=== PATIENT | female | born 1955 | race Caucasian/White ===

== ENCOUNTER 2016-03-25 07:22 | Day surgery (SDC) | payer BC, OTHER ==
[~2016-03-25] VITALS: Ht 170.2 cm; Wt 79.8 kg
[~2016-03-25 07:22] MED LIST: ADVAIR HFA120 INHALA IH; BYETTA PEN250 MCG/M1 SC; BYSTOLIC10 MG PO; BYSTOLIC5 MG PO; CALCIUM ACETAT667 MG PO; CARDURA2 M1 PO; CITALOPRAM HBR20 MG PO; CLONIDINE HCL0.1 MG PO; CLONIDINE HCL0.2 MG PO; CYCLOBENZAPRINE10 MG PO; DESYREL100 MG PO; DOXAZOSIN MESYLA2 MG PO; EDECRIN PO; EDECRIN25 MG PO; ENDOCET 7.5-321 EACH PO; FENOFIBRATE160 M1; FENOFIBRATE160 M1 PO; HUMALOG100 UNIT/2 SC; INDOCIN50 MG PO; IRON325 MG PO; JANUMET 50/11 TABLET; JANUVIA25 MG PO; LEVAQUIN250 MG PO; LEVOFLOXACIN500 MG PO; LISINOPRIL40 MG PO; METOLAZONE2.5 MG PO; NABI650T PO; NICOTINE PATCH1 EAC2 TD; NOVOLOG 10100 UNITS/; PREDNISONE10 M1 PO; PROAIR HFA8.5 GM IH; PROCRIT2000 UNIT1 IV; ROXICET 5-3251 EACH PO; SAVELLA50 MG PO; SPIRIVA RESPIMAT4 GM IH; SPIRONOLACTONE25 MG PO; VERAPAMIL HCL240 MG PO; VERELAN 180 MG180 MG; VICTOZA 2-0.6 MG/0.1 SC; VITAMIN D32000 UNI1 PO; ZOLPIDEM TARTRA10 MG PO
[2016-03-25 08:19] LABS: POINT-OF-CARE METER ID UU13113696
== END 2016-03-25 09:38 | disposition home or self-care (01) ==
LOC: CATH 07:22
PROVIDERS: Surgery
DX: T82.858A Stenosis of other vascular prosthetic devices, implants and grafts, initial encounter (principal); Y83.2 Surgical operation with anastomosis, bypass or graft as the cause of abnormal reaction of the patient, or of later complication, without mention of misadventure at the time of the procedure; I12.0 Hypertensive chronic kidney disease with stage 5 chronic kidney disease or end stage renal disease; E11.22 Type 2 diabetes mellitus with diabetic chronic kidney disease; N18.6 End stage renal disease; Z99.2 Dependence on renal dialysis; I65.23 Occlusion and stenosis of bilateral carotid arteries; E78.5 Hyperlipidemia, unspecified; J45.909 Unspecified asthma, uncomplicated; M19.90 Unspecified osteoarthritis, unspecified site; Z79.4 Long term (current) use of insulin; F17.200 Nicotine dependence, unspecified, uncomplicated; E66.9 Obesity, unspecified; Z68.34 Body mass index [BMI] 34.0-34.9, adult; Z88.8 Allergy status to other drugs, medicaments and biological substances; Z91.040 Latex allergy status
CPT/HCPCS: 82948; C1725; C1769; C1894; J1644; J2250; J3010

== ENCOUNTER 2016-04-18 13:22 | Inpatient (IN) | payer BC, OTHER ==
[~2016-04-18] VITALS: Ht 167.6 cm; Wt 75.9 kg
[2016-04-18 15:25] LABS: HEMATOCRIT 28.6 % (36.0-46.0); MCHC 33.6 G/DL (30.0-36.0); MCV 89.4 FL (83-99); MEAN PLAT.VOLUME 8.5 uM^3 (9.5-12.4); PLATELET COUNT 321 K/uL (156-360); RBC DIS.WIDTH-CV 15.7 % (11.8-14.6); RBC DIS.WIDTH-SD 49.5 % (39-53); WHITE BLOOD COUNT 20.3 K/uL (4.1-10.2)
[2016-04-18 15:36] LABS: CHLORIDE 104 mEq/L (99-109); POTASSIUM 3.9 mEq/L (3.7-5.4); SODIUM 134 mEq/L (136-147)
[2016-04-18 15:38] LABS: GLUCOSE 83 mg/dL (70-99)
[2016-04-18 15:39] LABS: ANION GAP 18 MEQ/L (2-14)
[2016-04-18 15:41] LABS: GFR ESTIMATE (CALCULATED) 5 mL/min/
[2016-04-18 15:42] LABS: CREATINE KINASE 62 IU/L (1-294); TOTAL CK 62 IU/L (1-294)
[2016-04-18] MEDS ORDERED: OXYCODONE-APAP1 EAC6 PO (15:45)
[2016-04-18] MEDS ORDERED: EPOGEN,PRO20000 UNIT SC (15:45)
[2016-04-18 15:46] LABS: TROP-I INTERPRETATION NEGATIVE; TROPONIN-I 0.08 ng/mL (0.0-0.30)
[2016-04-18 15:46] LABS: UREA NITROGEN (BUN) 128 mg/dL (9-23)
[2016-04-18 15:48] LABS: CK-MB 5.9 ng/mL (0.0-4.9)
[2016-04-18 16:10] LABS: ADD MIUA? YES; BILIRUBIN NEGATIVE; BLOOD NEGATIVE; COLOR YELLOW ((YELLOW)); GLUCOSE (STRIP) NEGATIVE; KETONES NEGATIVE; LEUKOCYTES TRACE; NITRITE NEGATIVE; PROTEIN (STRIP) 100; SPECIFIC GRAVITY 1.017 (1.000-1.030)
[2016-04-18 16:38] LABS: CARBON DIOXIDE (BICARBONATE) 12.1 MEQ/L (20-31)
[2016-04-18 16:46] LABS: AMORPHOUS URATES CRYSTALS 3+; BACTERIA RARE; CASTS NONE SEEN /LPF; CRYSTALS PRESENT; EPITHELIAL CELLS RARE; MUCUS NONE SEEN; RED BLOOD CELLS NONE SEEN /HPF (0-5); UCUL ADDED? NO; WHITE BLOOD CELLS 0-5 /HPF (0-5)
[2016-04-18] MEDS ORDERED: FENOFIBRATE160 M1 PO (18:26)
[2016-04-18 21:53] VITALS: BP 157/67
[2016-04-19] VITALS: BP 149/71
[2016-04-19 00:26] LABS: ALKALINE PHOSPHATASE 130 IU/L (3-129); DIRECT BILIRUBIN 0.9 mg/dL (0.0-0.3); TOTAL BILIRUBIN 1.3 MG/DL (0.0-1.0)
[2016-04-19 06:41] LABS: HEMATOCRIT 24.9 % (36.0-46.0); MCH 29.9 PG (29.0-34.0); MCHC 33.7 G/DL (30.0-36.0); MCV 88.6 FL (83-99); MEAN PLAT.VOLUME 9.1 uM^3 (9.5-12.4); PLATELET COUNT 251 K/uL (156-360); RBC DIS.WIDTH-CV 15.9 % (11.8-14.6); RED BLOOD COUNT 2.81 M/uL (3.80-5.20); WHITE BLOOD COUNT 16.5 K/uL (4.1-10.2)
[2016-04-19 06:50] LABS: EOSINOPHIL (%) 0 % (0-5); IMMATURE GRANULOCYTE (%) 0.6 % (0.0-0.7); IMMATURE GRANULOCYTE COUNT 0.1 K/uL; LYMPHOCYTE COUNT 0.5 K/uL (1.0-2.8); MONOCYTE (%) 7.5 % (3-12); MONOCYTE COUNT 1.2 K/uL (0-0.8); NEUTROPHIL (%) 88.7 % (45-76); NEUTROPHIL COUNT 14.7 K/uL (1.8-6.4)
[2016-04-19 07:07] LABS: ANION GAP 17 MEQ/L (2-14); CHLORIDE 102 MEQ/L (99-109); GLUCOSE 75 mg/dL (70-99); POTASSIUM 3.3 MEQ/L (3.7-5.4); SAMPLE HEMOLYSIS CHECK 0; SAMPLE ICTERIC CHECK 0; SAMPLE LIPEMIA CHECK 0; SODIUM 137 MEQ/L (136-147); UREA NITROGEN (BUN) 72 mg/dL (9-23)
[2016-04-19 07:16] LABS: GFR ESTIMATE (CALCULATED) 8 mL/min/
[2016-04-19 07:55] VITALS: BP 148/64
[2016-04-19 16:02] VITALS: BP 154/68
[2016-04-19 23:38] VITALS: BP 129/63
[2016-04-20 05:37] LABS: MCHC 33.2 G/DL (30.0-36.0); MCV 90.3 FL (83-99); MEAN PLAT.VOLUME 9.5 uM^3 (9.5-12.4); PLATELET COUNT 242 K/uL (156-360); RBC DIS.WIDTH-SD 52.9 % (39-53); RED BLOOD COUNT 2.77 M/uL (3.80-5.20); WHITE BLOOD COUNT 12.7 K/uL (4.1-10.2)
[2016-04-20 05:51] LABS: EOSINOPHIL (%) 0.2 % (0-5); IMMATURE GRANULOCYTE (%) 0.8 % (0.0-0.7); IMMATURE GRANULOCYTE COUNT 0.1 K/uL; LYMPHOCYTE COUNT 0.9 K/uL (1.0-2.8); MONOCYTE (%) 9.6 % (3-12); MONOCYTE COUNT 1.2 K/uL (0-0.8); NEUTROPHIL (%) 82.5 % (45-76); NEUTROPHIL COUNT 10.4 K/uL (1.8-6.4)
[2016-04-20 06:04] LABS: ANION GAP 12 MEQ/L (2-14); CHLORIDE 102 MEQ/L (99-109); POTASSIUM 3.6 MEQ/L (3.7-5.4); SAMPLE HEMOLYSIS CHECK 0; SAMPLE ICTERIC CHECK 0; SAMPLE LIPEMIA CHECK 0; SODIUM 139 MEQ/L (136-147); UREA NITROGEN (BUN) 49 mg/dL (9-23)
[2016-04-20 06:05] LABS: GFR ESTIMATE (CALCULATED) 11 mL/min/; GLUCOSE 127 mg/dL (70-99)
[2016-04-20 07:55] VITALS: BP 143/70
[2016-04-20 10:11] LABS: AHBS INDEX 0; HBSG INDEX 0.17; HEPATITIS B SURFACE ANTIBODY Nonreactive
[2016-04-20 10:12] LABS: ANTI-HEPATITIS B CORE (IGM) Nonreactive; HBC IgM INDEX 0.08
[2016-04-20 15:38] VITALS: BP 140/66
[2016-04-20 20:31] VITALS: BP 174/73
[2016-04-21] VITALS (7 sets, daily range): BP systolic 136–188; BP diastolic 54–82
[2016-04-21 00:09] LABS: C DIFF TOXIN POSITIVE (NEGATIVE)
[2016-04-21 00:11] LABS: PROBE CHECK PASS
[2016-04-21 07:05] LABS: HEMATOCRIT 27.8 % (36.0-46.0); MCHC 32.7 G/DL (30.0-36.0); MCV 91.7 FL (83-99); MEAN PLAT.VOLUME 9.5 uM^3 (9.5-12.4); PLATELET COUNT 248 K/uL (156-360); RBC DIS.WIDTH-CV 16.4 % (11.8-14.6); RBC DIS.WIDTH-SD 54.2 % (39-53); RED BLOOD COUNT 3.03 M/uL (3.80-5.20); WHITE BLOOD COUNT 14.2 K/uL (4.1-10.2)
[2016-04-21 08:35] LABS: ANION GAP 11 MEQ/L (2-14); CHLORIDE 102 MEQ/L (99-109); POTASSIUM 3.7 MEQ/L (3.7-5.4); SAMPLE HEMOLYSIS CHECK 0; SAMPLE ICTERIC CHECK 0; SAMPLE LIPEMIA CHECK 0; SODIUM 136 MEQ/L (136-147)
[2016-04-21 08:40] LABS: GFR ESTIMATE (CALCULATED) 9 mL/min/; GLUCOSE 130 mg/dL (70-99); UREA NITROGEN (BUN) 61 mg/dL (9-23)
[2016-04-22 07:31] LABS: ANION GAP 12 MEQ/L (2-14); CHLORIDE 101 MEQ/L (99-109); GFR ESTIMATE (CALCULATED) 14 mL/min/; GLUCOSE 131 mg/dL (70-99); SAMPLE HEMOLYSIS CHECK 0; SAMPLE ICTERIC CHECK 0; SAMPLE LIPEMIA CHECK 0; SODIUM 137 MEQ/L (136-147); UREA NITROGEN (BUN) 34 mg/dL (9-23)
[2016-04-22 07:50] VITALS: BP 150/68
[2016-04-22] MEDS ORDERED: METOLAZONE5 MG PO (11:52)
[2016-04-22 15:21] VITALS: BP 152/67
[2016-04-22 21:27] VITALS: BP 168/74
[2016-04-22 23:55] VITALS: BP 143/54
[2016-04-23 06:32] LABS: HEMATOCRIT 27.2 % (36.0-46.0); MCH 29.7 PG (29.0-34.0); MCV 92.8 FL (83-99); MEAN PLAT.VOLUME 9.9 uM^3 (9.5-12.4); PLATELET COUNT 226 K/uL (156-360); RBC DIS.WIDTH-CV 16.7 % (11.8-14.6); RBC DIS.WIDTH-SD 55.5 % (39-53); RED BLOOD COUNT 2.93 M/uL (3.80-5.20); WHITE BLOOD COUNT 16.4 K/uL (4.1-10.2)
[2016-04-23 06:54] LABS: EOSINOPHIL (%) 0.4 % (0-5); EOSINOPHIL COUNT 0.1 K/uL (0-0.3); IMMATURE GRANULOCYTE (%) 0.6 % (0.0-0.7); IMMATURE GRANULOCYTE COUNT 0.1 K/uL; LYMPHOCYTE COUNT 0.9 K/uL (1.0-2.8); MONOCYTE (%) 9.1 % (3-12); MONOCYTE COUNT 1.5 K/uL (0-0.8); NEUTROPHIL (%) 84.6 % (45-76); NEUTROPHIL COUNT 13.9 K/uL (1.8-6.4)
[2016-04-23 07:03] LABS: ANION GAP 11 MEQ/L (2-14); CHLORIDE 100 MEQ/L (99-109); GFR ESTIMATE (CALCULATED) 9 mL/min/; GLUCOSE 124 mg/dL (70-99); POTASSIUM 3.7 MEQ/L (3.7-5.4); SAMPLE HEMOLYSIS CHECK 0; SAMPLE ICTERIC CHECK 0; SAMPLE LIPEMIA CHECK 0; SODIUM 133 MEQ/L (136-147); UREA NITROGEN (BUN) 50 mg/dL (9-23)
[2016-04-23 07:46] VITALS: BP 125/62
[2016-04-23 10:29] LABS: HEMATOLOGY COMMENT 1 SMEAR COMPATIBLE; USER ID CL
[2016-04-23] MEDS ORDERED: VANCOMYCIN HCL125 MG PO (13:02)
[2016-04-23] MEDS ORDERED: FLORASTOR250 MG PO (13:02)
== END 2016-04-23 14:50 | disposition home or self-care (01) | DRG 682 ==
LOC: EME 13:22 → EDOF 18:49 → 5SOUTH 18:49
PROVIDERS: Emergency Medicine; Hospitalist; Internal Medicine; Internal Medicine Nephrology; Nurse Practitioner Adult Health
DX: N18.6 End stage renal disease (principal); G93.49 Other encephalopathy; J18.9 Pneumonia, unspecified organism; A04.7 Enterocolitis due to Clostridium difficile; E87.2 Acidosis; I12.0 Hypertensive chronic kidney disease with stage 5 chronic kidney disease or end stage renal disease; E11.22 Type 2 diabetes mellitus with diabetic chronic kidney disease; N17.9 Acute kidney failure, unspecified; J32.0 Chronic maxillary sinusitis; J44.9 Chronic obstructive pulmonary disease, unspecified; D63.1 Anemia in chronic kidney disease; E87.6 Hypokalemia; M79.7 Fibromyalgia; F32.9 Major depressive disorder, single episode, unspecified; E78.5 Hyperlipidemia, unspecified; M06.9 Rheumatoid arthritis, unspecified; F17.200 Nicotine dependence, unspecified, uncomplicated
CPT/HCPCS: 70450; 71010; 71020; 80048; 80076; 81003; 82550; 82553; 82803; 84484; 85025; 85027; 86705; 86706; 87040; 87177; 87340; 87493; 87506; 93005; 94640; 94640 76; 99202; C1752; J0456; J0696; J0881; J1200; J1644; J2250; J3010; J7040; J7050; S0020

== ENCOUNTER 2016-06-01 15:53 | Inpatient (IN) | payer BC, OTHER ==
[~2016-06-01] VITALS: Ht 168.9 cm; Wt 77.0 kg
[~2016-06-01 15:53] MED LIST changes: +EPOGEN,PRO20000 UNIT SC; +FLORASTOR250 MG PO; +METOLAZONE5 MG PO; +OXYCODONE-APAP1 EAC6 PO; +VANCOMYCIN HCL125 MG PO
[2016-06-01 16:49] LABS: BASOPHIL COUNT 0.1 K/uL (0-0.1); EOSINOPHIL (%) 0.7 % (0-5); EOSINOPHIL COUNT 0.1 K/uL (0-0.3); HEMATOCRIT 31.7 % (36.0-46.0); IMMATURE GRANULOCYTE (%) 0.7 % (0.0-0.7); IMMATURE GRANULOCYTE COUNT 0.1 K/uL; INSTRUMENT ABS NEUTROPHIL CT 6.7 K/uL; LYMPHOCYTE COUNT 1.9 K/uL (1.0-2.8); MCH 30.3 PG (29.0-34.0); MCHC 31.2 G/DL (30.0-36.0); MCV 96.9 FL (83-99); MEAN PLAT.VOLUME 8.7 uM^3 (9.5-12.4); MONOCYTE (%) 7.7 % (3-12); MONOCYTE COUNT 0.7 K/uL (0-0.8); NEUTROPHIL (%) 70.3 % (45-76); NEUTROPHIL COUNT 6.7 K/uL (1.8-6.4); PLATELET COUNT 286 K/uL (156-360); RBC DIS.WIDTH-CV 13.8 % (11.8-14.6); RBC DIS.WIDTH-SD 49.4 % (39-53); RED BLOOD COUNT 3.27 M/uL (3.80-5.20); WHITE BLOOD COUNT 9.5 K/uL (4.1-10.2)
[2016-06-01 17:02] LABS: CHLORIDE 94 mEq/L (99-109); POTASSIUM 3.6 mEq/L (3.7-5.4); SODIUM 135 mEq/L (136-147)
[2016-06-01 17:04] LABS: D-DIMER ELISA 2.31 mg/L FEU (< 0.57); GLUCOSE 169 mg/dL (70-99)
[2016-06-01 17:06] LABS: ANION GAP 12 MEQ/L (2-14)
[2016-06-01 17:08] LABS: GFR ESTIMATE (CALCULATED) 16 mL/min/
[2016-06-01 17:09] LABS: UREA NITROGEN (BUN) 25 mg/dL (9-23)
[2016-06-01 17:13] LABS: TROP-I INTERPRETATION NEGATIVE; TROPONIN-I 0.02 ng/mL (0.0-0.30)
[2016-06-01] MEDS ORDERED: VALSARTAN80 MG PO (20:13)
[2016-06-01] MEDS ORDERED: RENVELA800 MG PO (20:14)
[2016-06-01] MEDS ORDERED: METOLAZONE5 MG PO (20:14)
[2016-06-01 21:50] VITALS: BP 216/95
[2016-06-01 23:16] VITALS: BP 154/67
[2016-06-02 03:13] VITALS: BP 143/77
[2016-06-02 06:57] LABS: EOSINOPHIL (%) 0 % (0-5); HEMATOCRIT 29.4 % (36.0-46.0); IMMATURE GRANULOCYTE (%) 0.5 % (0.0-0.7); INSTRUMENT ABS NEUTROPHIL CT 3.3 K/uL; LYMPHOCYTE COUNT 0.5 K/uL (1.0-2.8); MCH 30.3 PG (29.0-34.0); MCHC 31.6 G/DL (30.0-36.0); MCV 95.8 FL (83-99); MEAN PLAT.VOLUME 9.2 uM^3 (9.5-12.4); MONOCYTE (%) 2.8 % (3-12); MONOCYTE COUNT 0.1 K/uL (0-0.8); NEUTROPHIL (%) 84.8 % (45-76); NEUTROPHIL COUNT 3.3 K/uL (1.8-6.4); PLATELET COUNT 236 K/uL (156-360); RBC DIS.WIDTH-CV 13.6 % (11.8-14.6); RBC DIS.WIDTH-SD 48.1 % (39-53); RED BLOOD COUNT 3.07 M/uL (3.80-5.20)
[2016-06-02 07:16] VITALS: BP 200/78
[2016-06-02 07:21] LABS: WHITE BLOOD COUNT 3.9 K/uL (4.1-10.2)
[2016-06-02 08:27] LABS: ANION GAP 11 MEQ/L (2-14); CHLORIDE 94 MEQ/L (99-109); GFR ESTIMATE (CALCULATED) 15 mL/min/; SAMPLE HEMOLYSIS CHECK 0; SAMPLE ICTERIC CHECK 0; SAMPLE LIPEMIA CHECK 0; SODIUM 133 MEQ/L (136-147); UREA NITROGEN (BUN) 37 mg/dL (9-23)
[2016-06-02 08:35] LABS: GLUCOSE 491 mg/dL (70-99); POTASSIUM 4.6 MEQ/L (3.7-5.4)
[2016-06-02 10:07] LABS: ADD MIUA? YES; BILIRUBIN NEGATIVE; BLOOD NEGATIVE; COLOR YELLOW ((YELLOW)); GLUCOSE (STRIP) >=500; KETONES NEGATIVE; LEUKOCYTES NEGATIVE; NITRITE NEGATIVE; PROTEIN (STRIP) 100; UROBILINOGEN 0.2 MG/DL (0.2-1.0)
[2016-06-02 10:23] LABS: BACTERIA NONE SEEN /HPF; EPITHELIAL CELLS RARE /HPF; MUCUS NONE SEEN /LPF; RED BLOOD CELLS 0-5 /HPF (0-5); UCUL ADDED? NO; WHITE BLOOD CELLS 0-5 /HPF (0-5)
[2016-06-02 10:26] VITALS: BP 154/64
[2016-06-02 12:18] VITALS: BP 138/63
[2016-06-02 19:00] VITALS: BP 171/73
[2016-06-02 19:04] LABS: POINT-OF-CARE METER ID UU13113698
[2016-06-02 22:37] LABS: POINT-OF-CARE METER ID UU13113698
[2016-06-02 23:33] VITALS: BP 194/81
[2016-06-03 04:07] VITALS: BP 162/70
[2016-06-03 06:58] LABS: POINT-OF-CARE METER ID UU14174216
[2016-06-03 07:39] LABS: EOSINOPHIL (%) 0.4 % (0-5); HEMATOCRIT 29.4 % (36.0-46.0); IMMATURE GRANULOCYTE (%) 0.3 % (0.0-0.7); LYMPHOCYTE COUNT 1.5 K/uL (1.0-2.8); MCH 30.2 PG (29.0-34.0); MCV 97.7 FL (83-99); MEAN PLAT.VOLUME 8.9 uM^3 (9.5-12.4); MONOCYTE (%) 6.8 % (3-12); MONOCYTE COUNT 0.7 K/uL (0-0.8); NEUTROPHIL (%) 77.5 % (45-76); PLATELET COUNT 272 K/uL (156-360); RBC DIS.WIDTH-SD 49.8 % (39-53); RED BLOOD COUNT 3.01 M/uL (3.80-5.20)
[2016-06-03 07:45] LABS: WHITE BLOOD COUNT 10.3 K/uL (4.1-10.2)
[2016-06-03 08:06] VITALS: BP 143/63
[2016-06-03 08:07] LABS: UREA NITROGEN (BUN) 21 mg/dL (9-23)
[2016-06-03 08:08] LABS: ANION GAP 8 MEQ/L (2-14); CHLORIDE 98 MEQ/L (99-109); SAMPLE HEMOLYSIS CHECK 0; SAMPLE ICTERIC CHECK 0; SAMPLE LIPEMIA CHECK 0; SODIUM 136 MEQ/L (136-147)
[2016-06-03 08:16] LABS: GLUCOSE 175 mg/dL (70-99)
[2016-06-03 08:17] LABS: GFR ESTIMATE (CALCULATED) 22 mL/min/; VANCOMYCIN, TROUGH 10.1 MCG/ML (10-20)
[2016-06-03 08:45] LABS: INTERNAL CONTROL VALID? YES
[2016-06-03 10:10] LABS: HBSG INDEX 0.25
[2016-06-03 10:50] VITALS: BP 154/67
[2016-06-03] MEDS ORDERED: ZITHROMAX500 MG PO (11:02)
[2016-06-03] MEDS ORDERED: AMOX TR-K CLV1 EAC3 PO (11:02)
[2016-06-03] MEDS ORDERED: VALSARTAN80 MG PO (11:13)
[2016-06-06 08:24] LABS: POINT-OF-CARE METER ID UU14174216
[2016-06-06 08:27] LABS: POINT-OF-CARE METER ID UU13113698
== END 2016-06-03 12:45 | disposition home or self-care (01) | DRG 177 ==
LOC: EME 15:53 → EDOF 20:50 → 4EAST 20:50
PROVIDERS: Emergency Medicine; Hospitalist; Internal Medicine; Student in an Organized Health Care Education/Training Program
PROC: 5A1D00Z (ICD-10-PCS; principal; 2016-06-02)
DX: J69.0 Pneumonitis due to inhalation of food and vomit (principal); N18.6 End stage renal disease; J44.1 Chronic obstructive pulmonary disease with (acute) exacerbation; R04.2 Hemoptysis; I12.0 Hypertensive chronic kidney disease with stage 5 chronic kidney disease or end stage renal disease; J98.11 Atelectasis; E83.39 Other disorders of phosphorus metabolism; D63.1 Anemia in chronic kidney disease; F32.9 Major depressive disorder, single episode, unspecified; E11.22 Type 2 diabetes mellitus with diabetic chronic kidney disease; G89.29 Other chronic pain; E78.5 Hyperlipidemia, unspecified; Z79.4 Long term (current) use of insulin; F17.200 Nicotine dependence, unspecified, uncomplicated; Z87.01 Personal history of pneumonia (recurrent); R09.02 Hypoxemia; Z99.2 Dependence on renal dialysis
CPT/HCPCS: 71010; 71250; 78582; 80048; 80202; 81003; 82948; 83880; 84484; 85025; 85379; 87040; 87070; 87205; 87340; 87449; 92610 GN; 93005; 94640; 94640 76; 94799; 99202; 99281; 99285; A9539; A9540; J0295; J0360; J0456; J0881; J1815; J1956; J2930; J3370; J7050

== ENCOUNTER 2016-07-04 19:05 | Inpatient (IN) | payer BC, OTHER ==
[~2016-07-04] VITALS: Ht 167.6 cm; Wt 88.0 kg
[~2016-07-04 19:05] MED LIST changes: +AMOX TR-K CLV1 EAC3 PO; +RENVELA800 MG PO; +VALSARTAN80 MG PO; +ZITHROMAX500 MG PO
[2016-07-04 19:42] LABS: CHLORIDE 94 mEq/L (99-109); HEMATOCRIT 32.4 % (36.0-46.0); MCH 27.3 PG (29.0-34.0); MCHC 30.6 G/DL (30.0-36.0); MCV 89.5 FL (83-99); MEAN PLAT.VOLUME 9.7 uM^3 (9.5-12.4); PLATELET COUNT 324 K/uL (156-360); POTASSIUM 4.3 mEq/L (3.7-5.4); RBC DIS.WIDTH-CV 15.7 % (11.8-14.6); RBC DIS.WIDTH-SD 51.3 % (39-53); RED BLOOD COUNT 3.62 M/uL (3.80-5.20); SODIUM 136 mEq/L (136-147); WHITE BLOOD COUNT 13.2 K/uL (4.1-10.2)
[2016-07-04 19:44] LABS: GLUCOSE 252 mg/dL (70-99)
[2016-07-04 19:45] LABS: ANION GAP 15 MEQ/L (2-14)
[2016-07-04 19:48] LABS: GFR ESTIMATE (CALCULATED) 12 mL/min/
[2016-07-04 19:49] LABS: UREA NITROGEN (BUN) 23 mg/dL (9-23)
[2016-07-04 19:56] LABS: TROP-I INTERPRETATION NEGATIVE; TROPONIN-I 0.04 ng/mL (0.0-0.30)
[2016-07-04] MEDS ORDERED: FOLIC ACID1 MG PO (20:29)
[2016-07-04] MEDS ORDERED: B COMPLETE1 EACH PO (20:29)
[2016-07-04] MEDS ORDERED: VITAMIN D31000 UNI2 PO (20:29)
[2016-07-04] MEDS ORDERED: GUAIFENESIN AC473 ML PO (20:29)
[2016-07-04] MEDS ORDERED: DAILY VITE1 EAC1 PO (20:30)
[2016-07-04] MEDS ORDERED: LO-DOSE ASPIRIN81 M2 PO (20:30)
[2016-07-04] MEDS ORDERED: DOXAZOSIN MESYLA4 MG PO (20:30)
[2016-07-04] MEDS ORDERED: VITAMIN C1000 MG PO (20:31)
[2016-07-04 20:59] LABS: BASE EXCESS 8.4 mEq/L (-3 to +3); BICARBONATE 32.8 mEq/L (22-26); CARBOXY HGB 3.9 % (0-5); METHEMOGLOBIN 0.9 % (0-1.5); PCO2 44 mm Hg (35-45); PO2 55 mm Hg (80-100); pH 7.48 (7.35-7.45)
[2016-07-04 21:00] LABS: COMMENTS - BLOOD GASES C+; DEVICE NC; O2 FLOW 5 L/MIN; SITE RR; TOTAL RESP RATE 32 resp/min
[2016-07-04 23:03] LABS: D-DIMER ELISA > 4.00 mg/L FEU (< 0.57)
[2016-07-04 23:37] VITALS: BP 180/84
[2016-07-05] VITALS (11 sets, daily range): BP systolic 115–183; BP diastolic 47–81
[2016-07-05 06:49] LABS: HEMATOCRIT 30.6 % (36.0-46.0); MCH 27.3 PG (29.0-34.0); MCHC 30.4 G/DL (30.0-36.0); MCV 89.7 FL (83-99); MEAN PLAT.VOLUME 10.5 uM^3 (9.5-12.4); PLATELET COUNT 248 K/uL (156-360); RBC DIS.WIDTH-CV 16.2 % (11.8-14.6); RBC DIS.WIDTH-SD 52.8 % (39-53); RED BLOOD COUNT 3.41 M/uL (3.80-5.20)
[2016-07-05 06:53] LABS: WHITE BLOOD COUNT 8.5 K/uL (4.1-10.2)
[2016-07-05 07:07] LABS: ALKALINE PHOSPHATASE 113 IU/L (3-129); ANION GAP 15 MEQ/L (2-14); CHLORIDE 92 MEQ/L (99-109); GFR ESTIMATE (CALCULATED) 12 mL/min/; GLUCOSE 305 mg/dL (70-99); HDL CHOLESTEROL 28 MG/DL (Desirable>=50); LDL CHOLESTEROL 38 mg/dL (Desirable<100); NON-HDL CHOLESTEROL 61 mg/dL (Desirable<160); POTASSIUM 4.3 MEQ/L (3.7-5.4); SAMPLE HEMOLYSIS CHECK 0; SAMPLE ICTERIC CHECK 0; SAMPLE LIPEMIA CHECK 0; SODIUM 134 MEQ/L (136-147); TOTAL BILIRUBIN 0.6 MG/DL (0.0-1.0); TOTAL CHOLESTEROL 89 mg/dL (Desirable<200); TRIGLYCERIDES 116 MG/DL (Normal: <150); UREA NITROGEN (BUN) 29 mg/dL (9-23)
[2016-07-05 07:21] LABS: Estimated Average Glucose 212 mg/dL (70-123)
[2016-07-05 15:23] LABS: INTER. NORMALIZED RATIO 1.4; PROTHROMBIN TIME 14.7 (9.2-11.2); PTT 27.3 (25-32)
[2016-07-05 16:21] LABS: TYPE OF FLUID THORACENTESIS
[2016-07-05 16:58] LABS: BODY FLUID LDH 120 IU/L
[2016-07-05 17:00] LABS: BODY FLUID PROTEIN < 3 G/DL
[2016-07-05 17:15] LABS: BODY FLUID RBC'S 52650 /MM^3 (0-100); RED CELL AREA COUNTED 0.4; RED CELL DILUTION 6
[2016-07-05 17:17] LABS: BODY FLUID WBC'S 583 /MM^3 (0-500); WBC AREA COUNTED 18; WBC DILUTION 6; WHITE CELL RAW COUNT 175
[2016-07-05 17:36] LABS: BODY FLUID EOSINOPHILS 0 % (0-25); MONO RAW COUNT 67; MONONUCLEAR WBC'S 67 %; POLY RAW COUNT 33; POLYNUCLEAR WBC'S 33 % (0-25)
[2016-07-06 04:31] VITALS: BP 129/61
[2016-07-06 06:21] LABS: HEMATOCRIT 30.7 % (36.0-46.0); MCH 27.4 PG (29.0-34.0); MCHC 30.6 G/DL (30.0-36.0); MCV 89.5 FL (83-99); MEAN PLAT.VOLUME 9.7 uM^3 (9.5-12.4); PLATELET COUNT 234 K/uL (156-360); RBC DIS.WIDTH-CV 16.3 % (11.8-14.6); RBC DIS.WIDTH-SD 53.7 % (39-53); RED BLOOD COUNT 3.43 M/uL (3.80-5.20); WHITE BLOOD COUNT 8.9 K/uL (4.1-10.2)
[2016-07-06 06:43] LABS: ANION GAP 13 MEQ/L (2-14); CHLORIDE 94 MEQ/L (99-109); GFR ESTIMATE (CALCULATED) 14 mL/min/; GLUCOSE 314 mg/dL (70-99); SAMPLE HEMOLYSIS CHECK 0; SAMPLE ICTERIC CHECK 0; SAMPLE LIPEMIA CHECK 0; SODIUM 133 MEQ/L (136-147); UREA NITROGEN (BUN) 38 mg/dL (9-23)
[2016-07-06 07:40] LABS: POINT-OF-CARE METER ID UU14174216
[2016-07-06 08:08] VITALS: BP 137/65
[2016-07-06 11:17] VITALS: BP 112/54
[2016-07-06 15:01] VITALS: BP 111/56
[2016-07-06 19:15] VITALS: BP 147/67
[2016-07-06 23:37] VITALS: BP 147/97
[2016-07-07 05:01] VITALS: BP 150/68
[2016-07-07 06:44] LABS: MCH 27.1 PG (29.0-34.0); MCHC 30.6 G/DL (30.0-36.0); MCV 88.3 FL (83-99); MEAN PLAT.VOLUME 10.3 uM^3 (9.5-12.4); NRBC (%) 0.2 /100 WBC (0-0); PLATELET COUNT 232 K/uL (156-360); RBC DIS.WIDTH-CV 16.3 % (11.8-14.6); RBC DIS.WIDTH-SD 52.4 % (39-53); RED BLOOD COUNT 3.51 M/uL (3.80-5.20); WHITE BLOOD COUNT 9.4 K/uL (4.1-10.2)
[2016-07-07 07:21] LABS: ANION GAP 13 MEQ/L (2-14); CHLORIDE 90 MEQ/L (99-109); GFR ESTIMATE (CALCULATED) 11 mL/min/; IRON 31 MCG/DL (35-150); POTASSIUM 4.5 MEQ/L (3.7-5.4); SAMPLE HEMOLYSIS CHECK 0; SAMPLE ICTERIC CHECK 0; SAMPLE LIPEMIA CHECK 0; SODIUM 130 MEQ/L (136-147); UREA NITROGEN (BUN) 55 mg/dL (9-23)
[2016-07-07 07:22] LABS: GLUCOSE 135 mg/dL (70-99)
[2016-07-07 08:00] VITALS: BP 172/77
[2016-07-07 09:39] LABS: TYPE OF FLUID PLEURAL
[2016-07-07 10:02] LABS: LACTATE DEHYDROGENASE 298 IU/L (20-246)
[2016-07-07 10:32] LABS: BODY FLUID LDH 133 IU/L
[2016-07-07 10:55] LABS: BODY FLUID EOSINOPHILS 0 % (0-25); BODY FLUID RBC'S 40000 /MM^3 (0-100); BODY FLUID WBC'S 1582 /MM^3 (0-500); MONONUCLEAR WBC'S 7 %; POLYNUCLEAR WBC'S 93 % (0-25)
[2016-07-07 11:32] LABS: BODY FLUID PROTEIN < 3.0 G/DL
[2016-07-07 11:49] LABS: POINT-OF-CARE METER ID UU14174216
[2016-07-07 11:50] LABS: POINT-OF-CARE METER ID UU14174216
[2016-07-07 12:24] VITALS: BP 149/64
[2016-07-07 14:44] VITALS: BP 113/59
[2016-07-07 19:23] VITALS: BP 141/72
[2016-07-07 23:12] VITALS: BP 125/63
[2016-07-08 04:36] VITALS: BP 144/68
[2016-07-08 06:28] LABS: HEMATOCRIT 35.1 % (36.0-46.0); MCH 27.2 PG (29.0-34.0); MCHC 30.2 G/DL (30.0-36.0); MEAN PLAT.VOLUME 10.4 uM^3 (9.5-12.4); NRBC (%) 0.3 /100 WBC (0-0); RBC DIS.WIDTH-CV 16.6 % (11.8-14.6); RBC DIS.WIDTH-SD 53.6 % (39-53)
[2016-07-08 06:40] LABS: PLATELET COUNT 333 K/uL (156-360); WHITE BLOOD COUNT 19.4 K/uL (4.1-10.2)
[2016-07-08 07:25] VITALS: BP 140/70
[2016-07-08 07:36] LABS: ANION GAP 19 MEQ/L (2-14); CHLORIDE 85 MEQ/L (99-109); GFR ESTIMATE (CALCULATED) 9 mL/min/; POTASSIUM 5.1 MEQ/L (3.7-5.4); SAMPLE HEMOLYSIS CHECK 0; SAMPLE ICTERIC CHECK 0; SAMPLE LIPEMIA CHECK 0; SODIUM 127 MEQ/L (136-147); UREA NITROGEN (BUN) 68 mg/dL (9-23)
[2016-07-08 07:38] LABS: GLUCOSE 71 mg/dL (70-99)
[2016-07-08 07:57] LABS: POINT-OF-CARE USER ID ENVKC36
[2016-07-08 13:30] VITALS: BP 146/74
[2016-07-08 13:47] LABS: POINT-OF-CARE USER ID ENVKC36
[2016-07-08 16:15] VITALS: BP 138/66
[2016-07-08 16:58] LABS: POINT-OF-CARE USER ID ENVKC36
[2016-07-08 19:24] VITALS: BP 160/67
[2016-07-08 23:05] VITALS: BP 137/70
[2016-07-09 03:36] VITALS: BP 143/65
[2016-07-09 06:43] LABS: HEMATOCRIT 31.9 % (36.0-46.0); MCH 27.4 PG (29.0-34.0); MCHC 30.4 G/DL (30.0-36.0); MCV 90.1 FL (83-99); RBC DIS.WIDTH-CV 16.6 % (11.8-14.6); RED BLOOD COUNT 3.54 M/uL (3.80-5.20)
[2016-07-09 06:46] LABS: ANION GAP 11 MEQ/L (2-14); CHLORIDE 92 MEQ/L (99-109); GFR ESTIMATE (CALCULATED) 11 mL/min/; POTASSIUM 4.4 MEQ/L (3.7-5.4); SAMPLE HEMOLYSIS CHECK 0; SAMPLE ICTERIC CHECK 0; SAMPLE LIPEMIA CHECK 0; SODIUM 131 MEQ/L (136-147); UREA NITROGEN (BUN) 43 mg/dL (9-23)
[2016-07-09 06:51] LABS: GLUCOSE 171 mg/dL (70-99)
[2016-07-09 07:16] LABS: WHITE BLOOD COUNT 12.8 K/uL (4.1-10.2)
[2016-07-09 07:17] LABS: MEAN PLAT.VOLUME 10.4 uM^3 (9.5-12.4); PLAT.SUFFICIENCY ADEQUATE
[2016-07-09 07:20] LABS: PLATELET COUNT 220 K/uL (156-360)
[2016-07-09 07:46] LABS: POINT-OF-CARE METER ID UU14174216; POINT-OF-CARE USER ID ENVKC36
[2016-07-09 08:54] VITALS: BP 137/79
[2016-07-09 11:57] LABS: POINT-OF-CARE METER ID UU14174216; POINT-OF-CARE USER ID ENVKC36
[2016-07-09 12:06] VITALS: BP 156/57
[2016-07-09 15:28] VITALS: BP 100/75
[2016-07-09 16:54] LABS: POINT-OF-CARE METER ID UU13113781; POINT-OF-CARE USER ID ENVKC36
[2016-07-09 19:11] VITALS: BP 139/65
[2016-07-09 20:50] LABS: POINT-OF-CARE METER ID UU14174216
[2016-07-09 22:57] VITALS: BP 143/70
[2016-07-10 03:38] VITALS: BP 132/65
[2016-07-10 06:28] LABS: POINT-OF-CARE METER ID UU14174216
[2016-07-10 09:18] LABS: HEMATOCRIT 31.2 % (36.0-46.0); MCH 27.2 PG (29.0-34.0); MCHC 30.4 G/DL (30.0-36.0); MCV 89.4 FL (83-99); MEAN PLAT.VOLUME 9.6 uM^3 (9.5-12.4); PLATELET COUNT 198 K/uL (156-360); RBC DIS.WIDTH-CV 16.6 % (11.8-14.6); RBC DIS.WIDTH-SD 53.2 % (39-53); RED BLOOD COUNT 3.49 M/uL (3.80-5.20); WHITE BLOOD COUNT 12.7 K/uL (4.1-10.2)
[2016-07-10 09:22] LABS: ANION GAP 12 MEQ/L (2-14); CHLORIDE 96 MEQ/L (99-109); POTASSIUM 4.3 MEQ/L (3.7-5.4); SAMPLE HEMOLYSIS CHECK 0; SAMPLE ICTERIC CHECK 0; SAMPLE LIPEMIA CHECK 0; SODIUM 132 MEQ/L (136-147)
[2016-07-10] MEDS ORDERED: TORSEMIDE20 MG PO (09:29)
[2016-07-10] MEDS ORDERED: LEVEMIR100 UNIT/2 SC (09:29)
[2016-07-10] MEDS ORDERED: ATORVASTATIN CA80 MG PO (09:29)
[2016-07-10] MEDS ORDERED: OXYCODONE-APAP1 EAC6 PO (09:29)
[2016-07-10 09:32] LABS: GFR ESTIMATE (CALCULATED) 10 mL/min/; UREA NITROGEN (BUN) 50 mg/dL (9-23)
[2016-07-10 09:41] LABS: GLUCOSE 83 mg/dL (70-99)
[2016-07-10] MEDS ORDERED: ENDOCET 5-3251 EACH PO (10:00)
[2016-07-10 12:21] VITALS: BP 133/61
[2016-07-10 12:34] LABS: POINT-OF-CARE METER ID UU13113781
== END 2016-07-10 14:20 | DRG 64 ==
LOC: EME → EDBD 19:05 → 4EAST 20:50 → EDOF 20:50 → 3EAST 23:19 → 4EAST 07-05 00:45
PROVIDERS: Hospitalist; Internal Medicine; Internal Medicine Pulmonary Disease; Nurse Practitioner Family; Radiology Diagnostic Radiology; Student in an Organized Health Care Education/Training Program
PROC: 0W993ZZ Drainage of Right Pleural Cavity, Percutaneous Approach (ICD-10-PCS; principal; 2016-07-05)
PROC: 5A1D60Z (ICD-10-PCS; 2016-07-05)
PROC: 0W9B3ZZ Drainage of Left Pleural Cavity, Percutaneous Approach (ICD-10-PCS; 2016-07-07)
DX: I63.413 Cerebral infarction due to embolism of bilateral middle cerebral arteries (principal); I63.433 Cerebral infarction due to embolism of bilateral posterior cerebral arteries; J96.01 Acute respiratory failure with hypoxia; I61.1 Nontraumatic intracerebral hemorrhage in hemisphere, cortical; E87.70 Fluid overload, unspecified; J90 Pleural effusion, not elsewhere classified; J18.9 Pneumonia, unspecified organism; Y95 Nosocomial condition; I12.0 Hypertensive chronic kidney disease with stage 5 chronic kidney disease or end stage renal disease; N18.6 End stage renal disease; Z99.2 Dependence on renal dialysis; D63.1 Anemia in chronic kidney disease; E11.22 Type 2 diabetes mellitus with diabetic chronic kidney disease; E87.1 Hypo-osmolality and hyponatremia; J44.0 Chronic obstructive pulmonary disease with (acute) lower respiratory infection; E66.9 Obesity, unspecified; Z68.32 Body mass index [BMI] 32.0-32.9, adult; S22.41XA Multiple fractures of ribs, right side, initial encounter for closed fracture; W19.XXXA Unspecified fall, initial encounter; I25.10 Atherosclerotic heart disease of native coronary artery without angina pectoris; I27.2 Other secondary pulmonary hypertension; I08.1 Rheumatic disorders of both mitral and tricuspid valves; I65.23 Occlusion and stenosis of bilateral carotid arteries; K42.9 Umbilical hernia without obstruction or gangrene; Z79.4 Long term (current) use of insulin; E11.42 Type 2 diabetes mellitus with diabetic polyneuropathy; M79.7 Fibromyalgia; M06.9 Rheumatoid arthritis, unspecified; F17.210 Nicotine dependence, cigarettes, uncomplicated; I70.8 Atherosclerosis of other arteries; J69.0 Pneumonitis due to inhalation of food and vomit; R16.0 Hepatomegaly, not elsewhere classified; R59.0 Localized enlarged lymph nodes; D50.9 Iron deficiency anemia, unspecified; R07.9 Chest pain, unspecified; R41.0 Disorientation, unspecified; H54.7 Unspecified visual loss; I49.9 Cardiac arrhythmia, unspecified; E88.09 Other disorders of plasma-protein metabolism, not elsewhere classified; E78.5 Hyperlipidemia, unspecified; E11.65 Type 2 diabetes mellitus with hyperglycemia; G93.41 Metabolic encephalopathy; J44.1 Chronic obstructive pulmonary disease with (acute) exacerbation; R48.8 Other symbolic dysfunctions
CPT/HCPCS: 36600; 70450; 70498; 70551; 71010; 71020; 71250; 71275; 74230; 80048; 80053; 80061; 80202; 81003; 82550 91; 82803; 82945; 82948; 83036; 83540; 83615; 83615 91; 83880; 83986 90; 84100; 84155; 84157; 84466; 84484; 85027; 85379; 85610; 85730; 87040; 87070; 87075; 87116; 87205; 87206; 88108; 88305; 89051; 92523 GN; 92610 GN; 92611 GN; 93005; 93306; 93880; 93970; 94640; 94640 76; 94760; 94799; 97532 GN; 99202; 99281; 99285; J0456; J0696; J0881; J1644; J1756; J1815; J1940; J2543; J2920; J2930; J3370; J7050; S0028

== ENCOUNTER → 2016-07-17 | Outpatient (CLI) | payer BC, OTHER ==
[~2016-07-17] MED LIST changes: +ATORVASTATIN CA80 MG PO; +B COMPLETE1 EACH PO; +DAILY VITE1 EAC1 PO; +DOXAZOSIN MESYLA4 MG PO; +ENDOCET 5-3251 EACH PO; +FOLIC ACID1 MG PO; +GUAIFENESIN AC473 ML PO; +LEVEMIR100 UNIT/2 SC; +LO-DOSE ASPIRIN81 M2 PO; +TORSEMIDE20 MG PO; +VITAMIN C1000 MG PO; +VITAMIN D31000 UNI2 PO
== END | disposition home or self-care (01) ==
LOC: AMB 08:00
PROC: 0WJ8XZZ Inspection of Chest Wall, External Approach (ICD-10-PCS; principal; 2016-07-17)
DX: Z45.2 Encounter for adjustment and management of vascular access device (principal); Z53.09 Procedure and treatment not carried out because of other contraindication; R09.02 Hypoxemia

== ENCOUNTER → 2016-08-19 | Outpatient (CLI) | payer BC, OTHER | END | disposition home or self-care (01) | LOC: AMB 07:48 | PROC: 02PYX3Z Removal of Infusion Device from Great Vessel, External Approach (ICD-10-PCS; principal; 2016-08-19) | DX: Z45.2 Encounter for adjustment and management of vascular access device (principal); N19 Unspecified kidney failure; Z99.2 Dependence on renal dialysis ==

== ENCOUNTER 2016-11-28 16:30 | Inpatient (IN) | payer BC, OTHER ==
[~2016-11-28] VITALS: Ht 170.2 cm; Wt 96.1 kg
[2016-11-28 16:43] LABS: HEMATOCRIT 34.1 % (36.0-46.0); MCHC 33.1 G/DL (30.0-36.0); MCV 90.5 FL (83-99); MEAN PLAT.VOLUME 10.2 uM^3 (9.5-12.4); PLATELET COUNT 148 K/uL (156-360); RBC DIS.WIDTH-CV 14.1 % (11.8-14.6); RBC DIS.WIDTH-SD 47.1 % (39-53); RED BLOOD COUNT 3.77 M/uL (3.80-5.20); WHITE BLOOD COUNT 13.8 K/uL (4.1-10.2)
[2016-11-28 16:54] LABS: CHLORIDE 85 mEq/L (99-109)
[2016-11-28 16:55] LABS: POTASSIUM 3.4 mEq/L (3.7-5.4); SODIUM 128 mEq/L (136-147)
[2016-11-28 16:58] LABS: ANION GAP 15 MEQ/L (2-14)
[2016-11-28 17:00] LABS: GFR ESTIMATE (CALCULATED) 10 mL/min/
[2016-11-28 17:01] LABS: UREA NITROGEN (BUN) 42 mg/dL (9-23)
[2016-11-28 17:20] LABS: GLUCOSE 563 mg/dL (70-99)
[2016-11-28 17:24] LABS: TROP-I INTERPRETATION NEGATIVE; TROPONIN-I 0.27 ng/mL (0.0-0.30)
[2016-11-28 17:35] LABS: CARBON DIOXIDE (BICARBONATE) 35.7 MEQ/L (20-31)
[2016-11-28 19:27] LABS: POINT-OF-CARE METER ID UU13113702
[2016-11-28 19:59] LABS: Estimated Average Glucose 194 mg/dL (70-123); HEMOGLOBIN A1c (GLYCOHEMOGLOB) 8.4 % HGB (Below 5.7)
[2016-11-28] MEDS ORDERED: DIALYVITE TABL1 EACH PO (20:07)
[2016-11-28] MEDS ORDERED: LOSARTAN POTASS50 MG PO (20:08)
[2016-11-28] MEDS ORDERED: GABAPENTIN100 MG PO (20:08)
[2016-11-28 20:45] VITALS: BP 135/64
[2016-11-28 20:45] LABS: POINT-OF-CARE METER ID UU13113698
[2016-11-29 00:10] VITALS: BP 96/51
[2016-11-29 00:15] LABS: TROP-I INTERPRETATION NEGATIVE; TROPONIN-I 0.29 ng/mL (0.0-0.30)
[2016-11-29 04:10] VITALS: BP 115/56
[2016-11-29 05:57] LABS: HEMATOCRIT 33.1 % (36.0-46.0); MCH 29.4 PG (29.0-34.0); MCV 91.9 FL (83-99); MEAN PLAT.VOLUME 10.5 uM^3 (9.5-12.4); PLATELET COUNT 160 K/uL (156-360); RBC DIS.WIDTH-CV 14.3 % (11.8-14.6); RBC DIS.WIDTH-SD 48.9 % (39-53)
[2016-11-29 06:20] LABS: ANION GAP 14 MEQ/L (2-14); CHLORIDE 90 MEQ/L (99-109); GFR ESTIMATE (CALCULATED) 10 mL/min/; GLUCOSE 315 mg/dL (70-99); POTASSIUM 3.5 MEQ/L (3.7-5.4); SAMPLE HEMOLYSIS CHECK 0; SAMPLE ICTERIC CHECK 0; SAMPLE LIPEMIA CHECK 0; SODIUM 133 MEQ/L (136-147); UREA NITROGEN (BUN) 45 mg/dL (9-23)
[2016-11-29 07:22] LABS: POINT-OF-CARE METER ID UU14174216
[2016-11-29 08:43] VITALS: BP 110/58
[2016-11-29 08:58] VITALS: BP 166/69
[2016-11-29 12:12] LABS: POINT-OF-CARE METER ID UU13113702
[2016-11-29 14:57] LABS: POINT-OF-CARE METER ID UU13113781
[2016-11-29 15:57] VITALS: BP 112/62
[2016-11-29 16:19] LABS: POINT-OF-CARE METER ID UU14174216
[2016-11-29 19:05] VITALS: BP 118/57
[2016-11-29 19:49] LABS: INTER. NORMALIZED RATIO 1.3; PROTHROMBIN TIME 14.5 SEC (10.2-12.9)
[2016-11-29 19:51] LABS: PTT 27.6 SEC (25-37)
[2016-11-29 21:00] LABS: POINT-OF-CARE METER ID UU14174216
[2016-11-29 23:22] LABS: TROP-I INTERPRETATION NEGATIVE; TROPONIN-I 0.14 ng/mL (0.0-0.30)
[2016-11-30 00:05] VITALS: BP 110/56
[2016-11-30 04:17] LABS: HEMATOCRIT 33.1 % (36.0-46.0); MCH 29.5 PG (29.0-34.0); MCHC 32.3 G/DL (30.0-36.0); MCV 91.2 FL (83-99); MEAN PLAT.VOLUME 10.1 uM^3 (9.5-12.4); PLATELET COUNT 139 K/uL (156-360); RBC DIS.WIDTH-CV 14.2 % (11.8-14.6); RBC DIS.WIDTH-SD 48.3 % (39-53); RED BLOOD COUNT 3.63 M/uL (3.80-5.20); WHITE BLOOD COUNT 10.5 K/uL (4.1-10.2)
[2016-11-30 04:19] VITALS: BP 102/55
[2016-11-30 04:26] LABS: POTASSIUM 4.1 mEq/L (3.7-5.4); SODIUM 132 mEq/L (136-147)
[2016-11-30 04:28] LABS: GLUCOSE 249 mg/dL (70-99)
[2016-11-30 04:29] LABS: ANION GAP 11 MEQ/L (2-14)
[2016-11-30 04:30] LABS: TOTAL BILIRUBIN 0.6 mg/dL (0.0-1.0)
[2016-11-30 04:32] LABS: ALKALINE PHOSPHATASE 131 IU/L (3-129); GFR ESTIMATE (CALCULATED) 11 mL/min/
[2016-11-30 04:33] LABS: UREA NITROGEN (BUN) 35 mg/dL (9-23)
[2016-11-30 04:41] LABS: CHLORIDE 95 mEq/L (99-109)
[2016-11-30 06:34] LABS: VANCOMYCIN, TROUGH 13.2 MCG/ML (10-20)
[2016-11-30 07:31] VITALS: BP 109/56
[2016-11-30 07:45] LABS: POINT-OF-CARE METER ID UU14174216; POINT-OF-CARE USER ID ENVKC36
[2016-11-30 10:19] LABS: TYPE OF FLUID THORACENTESIS
[2016-11-30 10:42] LABS: BODY FLUID RBC'S 2000 /MM^3 (0-100); BODY FLUID WBC'S 7935 /MM^3 (0-500)
[2016-11-30 10:52] LABS: BODY FLUID LDH 534 IU/L
[2016-11-30 11:19] LABS: BODY FLUID EOSINOPHILS 0 % (0-25); MONONUCLEAR WBC'S 3 %; POLYNUCLEAR WBC'S 97 % (0-25)
[2016-11-30 11:32] VITALS: BP 110/56
[2016-11-30 11:52] LABS: POINT-OF-CARE METER ID UU14174216; POINT-OF-CARE USER ID ENVKC36
[2016-11-30 12:54] LABS: LACTATE DEHYDROGENASE 148 IU/L (20-246)
[2016-11-30 13:17] LABS: GLUCOSE 383 mg/dL (70-99)
[2016-11-30 15:14] VITALS: BP 99/58
[2016-11-30 16:48] LABS: POINT-OF-CARE METER ID UU14174216; POINT-OF-CARE USER ID ENVKC36
[2016-11-30 19:15] VITALS: BP 118/60
[2016-11-30 22:01] LABS: POINT-OF-CARE METER ID UU13113781
[2016-12-01] VITALS (7 sets, daily range): BP systolic 112–166; BP diastolic 59–74
[2016-12-01 05:58] LABS: HEMATOCRIT 34.2 % (36.0-46.0); MCH 30.4 PG (29.0-34.0); MCHC 32.5 G/DL (30.0-36.0); MCV 93.7 FL (83-99); MEAN PLAT.VOLUME 10.3 uM^3 (9.5-12.4); PLATELET COUNT 168 K/uL (156-360); RBC DIS.WIDTH-CV 14.3 % (11.8-14.6); RBC DIS.WIDTH-SD 48.7 % (39-53); RED BLOOD COUNT 3.65 M/uL (3.80-5.20); WHITE BLOOD COUNT 13.5 K/uL (4.1-10.2)
[2016-12-01 06:27] LABS: ANION GAP 18 MEQ/L (2-14); CHLORIDE 91 MEQ/L (99-109); GFR ESTIMATE (CALCULATED) 8 mL/min/; GLUCOSE 281 mg/dL (70-99); POTASSIUM 4.3 MEQ/L (3.7-5.4); SAMPLE HEMOLYSIS CHECK 0; SAMPLE ICTERIC CHECK 0; SAMPLE LIPEMIA CHECK 0; SODIUM 130 MEQ/L (136-147)
[2016-12-01 06:31] LABS: UREA NITROGEN (BUN) 77 mg/dL (9-23)
[2016-12-01 08:03] LABS: POINT-OF-CARE METER ID UU13113698; POINT-OF-CARE USER ID NUTSLF44
[2016-12-01 11:33] LABS: POINT-OF-CARE METER ID UU14174216; POINT-OF-CARE USER ID NUTSLF44
[2016-12-01 16:34] LABS: POINT-OF-CARE METER ID UU14162508
[2016-12-01 22:12] LABS: POINT-OF-CARE METER ID UU14208750
[2016-12-02 03:45] VITALS: BP 156/70
[2016-12-02 06:13] LABS: POINT-OF-CARE METER ID UU14162508
[2016-12-02 07:09] LABS: MCH 28.8 PG (29.0-34.0); MCHC 32.6 G/DL (30.0-36.0); MEAN PLAT.VOLUME 9.6 uM^3 (9.5-12.4); PLATELET COUNT 209 K/uL (156-360); RBC DIS.WIDTH-CV 14.1 % (11.8-14.6); RBC DIS.WIDTH-SD 45.6 % (39-53); RED BLOOD COUNT 3.85 M/uL (3.80-5.20); WHITE BLOOD COUNT 13.9 K/uL (4.1-10.2)
[2016-12-02 07:11] LABS: MCV 88.3 FL (83-99)
[2016-12-02 07:39] LABS: ANION GAP 19 MEQ/L (2-14); CHLORIDE 87 MEQ/L (99-109); GLUCOSE 265 mg/dL (70-99); POTASSIUM 4.9 MEQ/L (3.7-5.4); SAMPLE HEMOLYSIS CHECK 0; SAMPLE ICTERIC CHECK 0; SAMPLE LIPEMIA CHECK 0; SODIUM 129 MEQ/L (136-147)
[2016-12-02 07:40] VITALS: BP 142/80
[2016-12-02 07:40] LABS: GFR ESTIMATE (CALCULATED) 7 mL/min/; UREA NITROGEN (BUN) 105 mg/dL (9-23)
[2016-12-02 12:22] LABS: POINT-OF-CARE METER ID UU14162508; POINT-OF-CARE USER ID PUTDRM
[2016-12-02] MEDS ORDERED: AMOXICILLIN500 MG PO (14:37)
[2016-12-02] MEDS ORDERED: HYDROMORPHONE HC2 MG PO (14:37)
[2016-12-02] MEDS ORDERED: NICOTINE PATCH1 EAC2 TD (14:37)
[2016-12-02] MEDS ORDERED: LEVEMIR100 UNIT/2 SC (14:37)
[2016-12-03 22:41] LABS: BODY FLUID PH 7.4 (())
== END 2016-12-02 15:31 | disposition home or self-care (01) | DRG 190 ==
LOC: EME 16:30 → EDOF 18:25 → 4EAST 18:25 → ENRESERV 18:29 → 4EAST 20:21 → ENRESERV 12-01 09:34 → 2EAST 12-01 13:00
PROVIDERS: Hospitalist; Physician Assistant Medical
PROC: 5A1D60Z (ICD-10-PCS; principal; 2016-11-29)
PROC: 0W993ZZ Drainage of Right Pleural Cavity, Percutaneous Approach (ICD-10-PCS; 2016-12-01)
DX: J44.0 Chronic obstructive pulmonary disease with (acute) lower respiratory infection (principal); J96.01 Acute respiratory failure with hypoxia; N18.6 End stage renal disease; J18.9 Pneumonia, unspecified organism; J90 Pleural effusion, not elsewhere classified; E11.22 Type 2 diabetes mellitus with diabetic chronic kidney disease; Z99.2 Dependence on renal dialysis; E11.65 Type 2 diabetes mellitus with hyperglycemia; E78.5 Hyperlipidemia, unspecified; Z86.73 Personal history of transient ischemic attack (TIA), and cerebral infarction without residual deficits; I24.8 Other forms of acute ischemic heart disease; M06.9 Rheumatoid arthritis, unspecified; D63.1 Anemia in chronic kidney disease; M79.7 Fibromyalgia; J44.1 Chronic obstructive pulmonary disease with (acute) exacerbation; I12.0 Hypertensive chronic kidney disease with stage 5 chronic kidney disease or end stage renal disease; F17.200 Nicotine dependence, unspecified, uncomplicated; I27.2 Other secondary pulmonary hypertension; I08.3 Combined rheumatic disorders of mitral, aortic and tricuspid valves; J20.9 Acute bronchitis, unspecified; Z91.81 History of falling; I25.10 Atherosclerotic heart disease of native coronary artery without angina pectoris; Z79.4 Long term (current) use of insulin
CPT/HCPCS: 70450; 71010; 71020; 76942; 80048; 80053; 80202; 82010; 82306; 82607; 82803; 82945; 82947 91; 82948; 83036; 83605; 83615; 83615 91; 83986 90; 84155; 84157; 84443; 84484; 85027; 85610; 85730; 87040; 87205; 89051; 93005; 93306; 94010; 94640; 94640 76; 94667; 94668; 94799; 99202; 99281; 99284; J0456; J0696; J1644; J1815; J2543; J2930; J3370; J7050

== ENCOUNTER 2016-12-09 09:36 | Inpatient (IN) | payer BC, OTHER ==
[~2016-12-09] VITALS: Ht 170.2 cm; Wt 86.2 kg
[~2016-12-09 09:36] MED LIST changes: +AMOXICILLIN500 MG PO; +DIALYVITE TABL1 EACH PO; +GABAPENTIN100 MG PO; +HYDROMORPHONE HC2 MG PO; +LOSARTAN POTASS50 MG PO
[2016-12-09 10:11] LABS: EOSINOPHIL (%) 0 % (0-5); HEMATOCRIT 29.6 % (36.0-46.0); IMMATURE GRANULOCYTE (%) 0.6 % (0.0-0.7); IMMATURE GRANULOCYTE COUNT 0.1 K/uL; INSTRUMENT ABS NEUTROPHIL CT 14.5 K/uL; LYMPHOCYTE COUNT 0.6 K/uL (1.0-2.8); MCH 29.3 PG (29.0-34.0); MCHC 32.1 G/DL (30.0-36.0); MCV 91.4 FL (83-99); MEAN PLAT.VOLUME 9.6 uM^3 (9.5-12.4); MONOCYTE (%) 4.8 % (3-12); MONOCYTE COUNT 0.8 K/uL (0-0.8); NEUTROPHIL COUNT 14.5 K/uL (1.8-6.4); PLATELET COUNT 237 K/uL (156-360); RBC DIS.WIDTH-CV 13.9 % (11.8-14.6); RBC DIS.WIDTH-SD 46.8 % (39-53); RED BLOOD COUNT 3.24 M/uL (3.80-5.20); WHITE BLOOD COUNT 15.9 K/uL (4.1-10.2)
[2016-12-09 10:27] LABS: CHLORIDE 88 mEq/L (99-109); SODIUM 131 mEq/L (136-147)
[2016-12-09 10:29] LABS: GLUCOSE 279 mg/dL (70-99)
[2016-12-09 10:30] LABS: ANION GAP 20 MEQ/L (2-14)
[2016-12-09 10:31] LABS: TROP-I INTERPRETATION NEGATIVE; TROPONIN-I 0.03 ng/mL (0.0-0.30)
[2016-12-09 10:33] LABS: GFR ESTIMATE (CALCULATED) 7 mL/min/
[2016-12-09 10:34] LABS: UREA NITROGEN (BUN) 51 mg/dL (9-23)
[2016-12-09 11:28] LABS: INTER. NORMALIZED RATIO 1.2; PROTHROMBIN TIME 12.7 SEC (10.2-12.9)
[2016-12-09 11:31] LABS: PTT 25.3 SEC (25-37)
[2016-12-09] MEDS ORDERED: DILAUDID2 MG PO (11:58)
[2016-12-09] MEDS ORDERED: TRESIBA FL100 UNIT/1 SC (11:59)
[2016-12-09 12:50] VITALS: BP 109/52
[2016-12-09 15:05] VITALS: BP 87/50
[2016-12-09 20:40] VITALS: BP 126/59
[2016-12-09 23:43] VITALS: BP 120/58
[2016-12-10 04:23] VITALS: BP 116/58
[2016-12-10 05:13] LABS: HEMATOCRIT 26.5 % (36.0-46.0); MCH 30.6 PG (29.0-34.0); MCHC 33.2 G/DL (30.0-36.0); MEAN PLAT.VOLUME 9.8 uM^3 (9.5-12.4); PLATELET COUNT 206 K/uL (156-360); RBC DIS.WIDTH-CV 14.1 % (11.8-14.6); RBC DIS.WIDTH-SD 48.1 % (39-53); RED BLOOD COUNT 2.88 M/uL (3.80-5.20); WHITE BLOOD COUNT 6.1 K/uL (4.1-10.2)
[2016-12-10 05:37] LABS: ANION GAP 12 MEQ/L (2-14); CHLORIDE 94 MEQ/L (99-109); GFR ESTIMATE (CALCULATED) 12 mL/min/; GLUCOSE 281 mg/dL (70-99); POTASSIUM 4.4 MEQ/L (3.7-5.4); SAMPLE HEMOLYSIS CHECK 0; SAMPLE ICTERIC CHECK 0; SAMPLE LIPEMIA CHECK 0; SODIUM 136 MEQ/L (136-147); UREA NITROGEN (BUN) 32 mg/dL (9-23)
[2016-12-10 07:47] VITALS: BP 143/66
[2016-12-10 11:30] LABS: IRON 21 MCG/DL (35-150)
[2016-12-10 12:51] VITALS: BP 159/72
[2016-12-10 17:39] VITALS: BP 150/66
[2016-12-10 19:30] VITALS: BP 146/67
[2016-12-10 23:19] VITALS: BP 141/63
[2016-12-11 03:52] VITALS: BP 129/62
[2016-12-11 06:20] LABS: HEMATOCRIT 28.1 % (36.0-46.0); MCH 29.1 PG (29.0-34.0); MCHC 31.3 G/DL (30.0-36.0); MEAN PLAT.VOLUME 9.4 uM^3 (9.5-12.4); PLATELET COUNT 227 K/uL (156-360); RBC DIS.WIDTH-CV 14.4 % (11.8-14.6); RBC DIS.WIDTH-SD 48.5 % (39-53); RED BLOOD COUNT 3.02 M/uL (3.80-5.20); WHITE BLOOD COUNT 11.6 K/uL (4.1-10.2)
[2016-12-11 06:47] LABS: ANION GAP 11 MEQ/L (2-14); CHLORIDE 97 MEQ/L (99-109); GFR ESTIMATE (CALCULATED) 9 mL/min/; POTASSIUM 4.2 MEQ/L (3.7-5.4); SAMPLE HEMOLYSIS CHECK 0; SAMPLE ICTERIC CHECK 0; SAMPLE LIPEMIA CHECK 0; SODIUM 139 MEQ/L (136-147)
[2016-12-11 06:55] LABS: GLUCOSE 87 mg/dL (70-99); UREA NITROGEN (BUN) 50 mg/dL (9-23)
[2016-12-11 07:34] LABS: POINT-OF-CARE METER ID UU13113781
[2016-12-11 08:41] VITALS: BP 131/61
[2016-12-11 12:30] VITALS: BP 157/87
[2016-12-11 12:45] LABS: POINT-OF-CARE METER ID UU13113781
[2016-12-11 15:10] VITALS: BP 134/78
[2016-12-11 16:20] LABS: POINT-OF-CARE METER ID UU13113781
== END 2016-12-11 19:28 | disposition left against medical advice (07) | DRG 867 ==
LOC: EME 09:36 → EDOF 11:09 → 4EAST 11:09 → ENRESERV 11:30 → 4EAST 12:49 → ENRESERV 12-10 11:08 → CANRESERV 12-10 11:08 → 4EAST 12-11 19:28
PROVIDERS: Emergency Medicine; Hospitalist; Internal Medicine
PROC: 0W993ZZ Drainage of Right Pleural Cavity, Percutaneous Approach (ICD-10-PCS; principal; 2016-12-09)
PROC: 5A1D60Z (ICD-10-PCS; 2016-12-09)
DX: A00-B99 Certain infectious and parasitic diseases (principal); J91.8 Pleural effusion in other conditions classified elsewhere; I13.2 Hypertensive heart and chronic kidney disease with heart failure and with stage 5 chronic kidney disease, or end stage renal disease; I50.30 Unspecified diastolic (congestive) heart failure; I08.3 Combined rheumatic disorders of mitral, aortic and tricuspid valves; J96.01 Acute respiratory failure with hypoxia; N18.6 End stage renal disease; D63.1 Anemia in chronic kidney disease; E11.22 Type 2 diabetes mellitus with diabetic chronic kidney disease; E11.40 Type 2 diabetes mellitus with diabetic neuropathy, unspecified; I25.10 Atherosclerotic heart disease of native coronary artery without angina pectoris; F41.9 Anxiety disorder, unspecified; G43.909 Migraine, unspecified, not intractable, without status migrainosus; I27.2 Other secondary pulmonary hypertension; I27.81 Cor pulmonale (chronic); I65.23 Occlusion and stenosis of bilateral carotid arteries; J44.9 Chronic obstructive pulmonary disease, unspecified; J98.11 Atelectasis; M06.9 Rheumatoid arthritis, unspecified; M79.7 Fibromyalgia; N25.81 Secondary hyperparathyroidism of renal origin; I95.9 Hypotension, unspecified; F32.9 Major depressive disorder, single episode, unspecified; M79.89 Other specified soft tissue disorders; F17.210 Nicotine dependence, cigarettes, uncomplicated; Z79.4 Long term (current) use of insulin; Z99.2 Dependence on renal dialysis; Z86.73 Personal history of transient ischemic attack (TIA), and cerebral infarction without residual deficits; Z91.81 History of falling
CPT/HCPCS: 71010; 71020; 71250; 76942; 80048; 80069; 82948; 83540; 84100; 84466; 84484; 85025; 85027; 85610; 85730; 93005; 94640; 94640 76; 94799; 99202; 99281; 99284; J0290; J0881; J1644; J1756; J1815; J2930; J7050; J7644; P9047

== ENCOUNTER → 2017-01-07 | Outpatient (CLI) | payer BC, OTHER ==
[~2017-01-07] MED LIST changes: +DILAUDID2 MG PO; +TRESIBA FL100 UNIT/1 SC
[2017-01-07 10:06] LABS: TYPE OF FLUID THORACENTESIS
[2017-01-07 10:21] LABS: BODY FLUID RBC'S 34000 /MM^3 (0-100); BODY FLUID WBC'S 432 /MM^3 (0-500)
[2017-01-07 10:41] LABS: BODY FLUID LDH 82 IU/L
[2017-01-07 10:53] LABS: BODY FLUID EOSINOPHILS 0 % (0-25); MONO RAW COUNT 88; MONONUCLEAR WBC'S 88 %; POLY RAW COUNT 12; POLYNUCLEAR WBC'S 12 % (0-25)
== END | disposition home or self-care (01) ==
LOC: EDSTATUS 09:00 → RAD 09:00
PROVIDERS: Internal Medicine Pulmonary Disease
PROC: 0W993ZZ Drainage of Right Pleural Cavity, Percutaneous Approach (ICD-10-PCS; principal; 2017-01-07)
DX: J90 Pleural effusion, not elsewhere classified (principal)
CPT/HCPCS: 76942; 83615 91; 84157; 87070; 87075; 87116; 87205; 87206; 88108; 88305; 89051

== ENCOUNTER 2017-02-20 04:06 | Inpatient (IN) | payer BC, OTHER ==
[~2017-02-20] VITALS: Ht 167.6 cm; Wt 84.3 kg
[~2017-02-20 04:06] MED LIST changes: +DUONEB 2.5-0.5 M3 ML AEROSOL; -GABAPENTIN100 MG PO; +NEURONTIN300 MG PO; -TRESIBA FL100 UNIT/1 SC; +TRESIBA FL200 UNIT/1 SC
[2017-02-20 06:15] VITALS: BP 130/60
[2017-02-20 06:25] LABS: POINT-OF-CARE METER ID UU14174212
[2017-02-20 07:03] LABS: BASOPHIL COUNT 0.1 K/uL (0-0.1); EOSINOPHIL (%) 0.5 % (0-5); HEMATOCRIT 33.1 % (36.0-46.0); IMMATURE GRANULOCYTE (%) 0.2 % (0.0-0.7); INSTRUMENT ABS NEUTROPHIL CT 6.4 K/uL; LYMPHOCYTE COUNT 1.1 K/uL (1.0-2.8); MCH 28.8 PG (29.0-34.0); MCHC 31.1 G/DL (30.0-36.0); MCV 92.5 FL (83-99); MEAN PLAT.VOLUME 8.8 uM^3 (9.5-12.4); MONOCYTE (%) 8.7 % (3-12); MONOCYTE COUNT 0.7 K/uL (0-0.8); NEUTROPHIL (%) 76.4 % (45-76); NEUTROPHIL COUNT 6.4 K/uL (1.8-6.4); PLATELET COUNT 206 K/uL (156-360); RBC DIS.WIDTH-CV 16.6 % (11.8-14.6); RBC DIS.WIDTH-SD 56.9 % (39-53); RED BLOOD COUNT 3.58 M/uL (3.80-5.20); WHITE BLOOD COUNT 8.4 K/uL (4.1-10.2)
[2017-02-20 07:10] LABS: INTER. NORMALIZED RATIO 1.1; PROTHROMBIN TIME 12.7 SEC (10.2-12.9)
[2017-02-20 07:13] LABS: PTT 29.6 SEC (25-37)
[2017-02-20 07:25] LABS: ANION GAP 11 MEQ/L (2-14); CHLORIDE 94 MEQ/L (99-109); SAMPLE HEMOLYSIS CHECK 0; SAMPLE ICTERIC CHECK 0; SAMPLE LIPEMIA CHECK 0; SODIUM 137 MEQ/L (136-147); TOTAL BILIRUBIN 0.5 MG/DL (0.0-1.0)
[2017-02-20 07:25] LABS: METH RESISTANT S AUREUS PCR NEGATIVE (NEGATIVE)
[2017-02-20 07:26] LABS: PROBE CHECK PASS; SPECIMEN PROCESSING CONTROL PASS
[2017-02-20 07:31] LABS: ALKALINE PHOSPHATASE 113 IU/L (3-129); GFR ESTIMATE (CALCULATED) 17 mL/min/; GLUCOSE 160 mg/dL (70-99); UREA NITROGEN (BUN) 34 mg/dL (9-23)
[2017-02-20 09:44] LABS: TYPE OF FLUID PLEURAL
[2017-02-20 10:04] LABS: BODY FLUID RBC'S 16000 /MM^3 (0-100); BODY FLUID WBC'S 248 /MM^3 (0-500)
[2017-02-20 10:20] LABS: BODY FLUID EOSINOPHILS 0 % (0-25); MONO RAW COUNT 85; MONONUCLEAR WBC'S 85 %; POLY RAW COUNT 15; POLYNUCLEAR WBC'S 15 % (0-25)
[2017-02-20 10:30] LABS: BODY FLUID PROTEIN 2.6 G/DL
[2017-02-20 10:55] LABS: POINT-OF-CARE METER ID UU13113675
[2017-02-20 15:15] VITALS: BP 163/75
[2017-02-20 15:57] LABS: POINT-OF-CARE METER ID UU13113698
[2017-02-20 19:30] VITALS: BP 180/76
[2017-02-20 20:45] LABS: POINT-OF-CARE METER ID UU13113698
[2017-02-21 00:05] VITALS: BP 174/79
[2017-02-21 04:26] VITALS: BP 135/65
[2017-02-21 08:16] LABS: HEMATOCRIT 32.1 % (36.0-46.0); MCH 29.2 PG (29.0-34.0); MCHC 31.8 G/DL (30.0-36.0); MEAN PLAT.VOLUME 9.4 uM^3 (9.5-12.4); PLATELET COUNT 193 K/uL (156-360); RBC DIS.WIDTH-CV 16.7 % (11.8-14.6); RBC DIS.WIDTH-SD 56.6 % (39-53); RED BLOOD COUNT 3.49 M/uL (3.80-5.20)
[2017-02-21 08:43] LABS: ANION GAP 10 MEQ/L (2-14); CHLORIDE 95 MEQ/L (99-109); POTASSIUM 4.4 MEQ/L (3.7-5.4); SAMPLE HEMOLYSIS CHECK 0; SAMPLE ICTERIC CHECK 0; SAMPLE LIPEMIA CHECK 0; SODIUM 133 MEQ/L (136-147)
[2017-02-21 08:54] LABS: GFR ESTIMATE (CALCULATED) 12 mL/min/; GLUCOSE 130 mg/dL (70-99); UREA NITROGEN (BUN) 43 mg/dL (9-23)
[2017-02-21 12:36] LABS: POINT-OF-CARE METER ID UU13113698
[2017-02-21 12:49] VITALS: BP 110/58
[2017-02-21 15:15] VITALS: BP 119/58
[2017-02-21 16:36] LABS: POINT-OF-CARE METER ID UU13113698
[2017-02-21 19:15] VITALS: BP 139/63
[2017-02-21 20:46] LABS: POINT-OF-CARE METER ID UU13113698
[2017-02-21 23:30] VITALS: BP 139/65
[2017-02-22 03:20] VITALS: BP 138/62
[2017-02-22 06:05] LABS: HEMATOCRIT 31.6 % (36.0-46.0); MCH 28.5 PG (29.0-34.0); MCHC 31.3 G/DL (30.0-36.0); MCV 91.1 FL (83-99); PLATELET COUNT 179 K/uL (156-360); RBC DIS.WIDTH-CV 16.3 % (11.8-14.6); RBC DIS.WIDTH-SD 54.5 % (39-53); RED BLOOD COUNT 3.47 M/uL (3.80-5.20); WHITE BLOOD COUNT 12.8 K/uL (4.1-10.2)
[2017-02-22 06:06] LABS: MEAN PLAT.VOLUME 9.7 uM^3 (9.5-12.4)
[2017-02-22 07:52] LABS: CHLORIDE 93 MEQ/L (99-109); POTASSIUM 4.3 MEQ/L (3.7-5.4); SAMPLE HEMOLYSIS CHECK 0; SAMPLE ICTERIC CHECK 0; SAMPLE LIPEMIA CHECK 0; SODIUM 132 MEQ/L (136-147); UREA NITROGEN (BUN) 31 mg/dL (9-23)
[2017-02-22 07:57] LABS: GLUCOSE 80 mg/dL (70-99)
[2017-02-22 08:14] LABS: POINT-OF-CARE METER ID UU14314088; POINT-OF-CARE USER ID ENVKC36
[2017-02-22 08:17] LABS: GFR ESTIMATE (CALCULATED) 13 mL/min/
[2017-02-22 08:24] LABS: ANION GAP 9 MEQ/L (2-14)
[2017-02-22 09:00] VITALS: BP 132/63
[2017-02-22 11:52] LABS: POINT-OF-CARE METER ID UU14314088; POINT-OF-CARE USER ID ENVKC36
[2017-02-22 12:30] VITALS: BP 117/58
[2017-02-22 16:35] LABS: POINT-OF-CARE METER ID UU14174216; POINT-OF-CARE USER ID ENVKC36
[2017-02-22 16:45] VITALS: BP 113/55
[2017-02-22 19:20] VITALS: BP 132/60
[2017-02-22 22:17] LABS: POINT-OF-CARE METER ID UU13113698
[2017-02-23 00:05] VITALS: BP 141/66
[2017-02-23 03:36] VITALS: BP 140/70
[2017-02-23 08:12] LABS: POINT-OF-CARE METER ID UU13113781; POINT-OF-CARE USER ID ENVKC36
[2017-02-23 09:20] VITALS: BP 142/65
[2017-02-23 10:05] LABS: POINT-OF-CARE METER ID UU13113698; POINT-OF-CARE USER ID ENVKC36
[2017-02-23 11:42] LABS: POINT-OF-CARE METER ID UU13113698; POINT-OF-CARE USER ID ENVKC36
[2017-02-23 11:57] VITALS: BP 120/70
[2017-02-23 16:32] LABS: POINT-OF-CARE METER ID UU13113781; POINT-OF-CARE USER ID ENVKC36
[2017-02-23 16:47] VITALS: BP 111/58
[2017-02-23] MEDS ORDERED: MUCINEX600 MG PO (18:36)
[2017-02-23] MEDS ORDERED: OXYCODONE HCL5 MG PO (18:36)
[2017-02-23] MEDS ORDERED: DOCUSATE SODIU100 MG PO (18:36)
[2017-02-23 21:16] VITALS: BP 155/69
== END 2017-02-23 21:11 | disposition home or self-care (01) | DRG 166 ==
LOC: ENRESERV 04:06 → CANRESERV 04:06 → 2SOUTH 05:32 → ENRESERV 11:02 → 2SOUTH 11:39 → ENRESERV 14:05 → 4EAST 14:55
PROVIDERS: Thoracic Surgery (Cardiothoracic Vascular Surgery)
DX: J90 Pleural effusion, not elsewhere classified (principal); J98.11 Atelectasis; R09.02 Hypoxemia; J44.9 Chronic obstructive pulmonary disease, unspecified; I12.0 Hypertensive chronic kidney disease with stage 5 chronic kidney disease or end stage renal disease; E11.22 Type 2 diabetes mellitus with diabetic chronic kidney disease; N18.6 End stage renal disease; D63.1 Anemia in chronic kidney disease; E11.42 Type 2 diabetes mellitus with diabetic polyneuropathy; E87.1 Hypo-osmolality and hyponatremia; I27.20 Pulmonary hypertension, unspecified; I08.1 Rheumatic disorders of both mitral and tricuspid valves; Z99.81 Dependence on supplemental oxygen; Z99.2 Dependence on renal dialysis; M79.7 Fibromyalgia; M06.9 Rheumatoid arthritis, unspecified; N25.81 Secondary hyperparathyroidism of renal origin; F17.210 Nicotine dependence, cigarettes, uncomplicated; F32.9 Major depressive disorder, single episode, unspecified; M19.90 Unspecified osteoarthritis, unspecified site; Z86.73 Personal history of transient ischemic attack (TIA), and cerebral infarction without residual deficits; Z90.710 Acquired absence of both cervix and uterus
CPT/HCPCS: 71010; 71020; 80048; 80053; 82945; 82948; 83615 91; 84157; 84315; 85025; 85027; 85610; 85730; 86850; 86900; 86901; 86920; 87070; 87075; 87102; 87116; 87205; 87206; 87641; 88108; 88305; 89051; 94010; 94640; 94640 76; 94667; 94668; 94799; J0131; J0330; J0690; J0881; J1170; J1644; J1815; J2250; J2405; J2710; J3010; J7030

== ENCOUNTER 2017-02-25 13:32 | Inpatient (IN) | payer BC, OTHER ==
[~2017-02-25] VITALS: Ht 170.2 cm; Wt 81.1 kg
[~2017-02-25 13:32] MED LIST changes: +DOCUSATE SODIU100 MG PO; +MUCINEX600 MG PO; +OXYCODONE HCL5 MG PO
[2017-02-25 14:26] LABS: EOSINOPHIL (%) 0 % (0-5); HEMATOCRIT 27.8 % (36.0-46.0); IMMATURE GRANULOCYTE (%) 0.6 % (0.0-0.7); IMMATURE GRANULOCYTE COUNT 0.1 K/uL; INSTRUMENT ABS NEUTROPHIL CT 7.7 K/uL; MCH 27.6 PG (29.0-34.0); MCHC 31.3 G/DL (30.0-36.0); MCV 88.3 FL (83-99); MEAN PLAT.VOLUME 9.7 uM^3 (9.5-12.4); MONOCYTE (%) 12.5 % (3-12); MONOCYTE COUNT 1.3 K/uL (0-0.8); NEUTROPHIL (%) 76.5 % (45-76); NEUTROPHIL COUNT 7.7 K/uL (1.8-6.4); PLATELET COUNT 202 K/uL (156-360); RBC DIS.WIDTH-CV 16.6 % (11.8-14.6); RBC DIS.WIDTH-SD 53.7 % (39-53); RED BLOOD COUNT 3.15 M/uL (3.80-5.20)
[2017-02-25 14:31] LABS: INTER. NORMALIZED RATIO 1.5; PROTHROMBIN TIME 16.5 SEC (10.2-12.9)
[2017-02-25 14:34] LABS: CHLORIDE 90 mEq/L (99-109); POTASSIUM 4.4 mEq/L (3.7-5.4); SODIUM 134 mEq/L (136-147)
[2017-02-25 14:36] LABS: GLUCOSE 261 mg/dL (70-99)
[2017-02-25 14:37] LABS: ANION GAP 15 MEQ/L (2-14)
[2017-02-25 14:38] LABS: TOTAL BILIRUBIN 0.5 mg/dL (0.0-1.0)
[2017-02-25 14:39] LABS: ALKALINE PHOSPHATASE 184 IU/L (3-129)
[2017-02-25 14:40] LABS: GFR ESTIMATE (CALCULATED) 10 mL/min/
[2017-02-25 14:41] LABS: UREA NITROGEN (BUN) 55 mg/dL (9-23)
[2017-02-25] MEDS ORDERED: DILAUDID2 MG PO (16:38)
[2017-02-25 22:30] VITALS: BP 133/63
[2017-02-25 23:00] VITALS: BP 107/61
[2017-02-25 23:01] VITALS: BP 133/63
[2017-02-25 23:56] LABS: METH RESISTANT S AUREUS PCR NEGATIVE (NEGATIVE)
[2017-02-26] VITALS (17 sets, daily range): BP systolic 112–157; BP diastolic 54–75
[2017-02-26 00:06] LABS: PROBE CHECK PASS; SPECIMEN PROCESSING CONTROL PASS
[2017-02-26 05:21] LABS: HEMATOCRIT 27.5 % (36.0-46.0); MCH 27.7 PG (29.0-34.0); MCHC 31.3 G/DL (30.0-36.0); MCV 88.7 FL (83-99); MEAN PLAT.VOLUME 9.5 uM^3 (9.5-12.4); PLATELET COUNT 209 K/uL (156-360); RBC DIS.WIDTH-CV 16.8 % (11.8-14.6); WHITE BLOOD COUNT 8.2 K/uL (4.1-10.2)
[2017-02-26 05:26] LABS: INTER. NORMALIZED RATIO 1.3; PROTHROMBIN TIME 14.8 SEC (10.2-12.9)
[2017-02-26 05:29] LABS: PTT 26.2 SEC (25-37)
[2017-02-26 05:58] LABS: ANION GAP 11 MEQ/L (2-14); CHLORIDE 91 MEQ/L (99-109); GFR ESTIMATE (CALCULATED) 9 mL/min/; GLUCOSE 166 mg/dL (70-99); HDL CHOLESTEROL 17 MG/DL (Desirable>=50); LDL CHOLESTEROL 52 mg/dL (Desirable<100); NON-HDL CHOLESTEROL 84 mg/dL (Desirable<160); POTASSIUM 3.8 MEQ/L (3.7-5.4); SAMPLE HEMOLYSIS CHECK 0; SAMPLE ICTERIC CHECK 0; SAMPLE LIPEMIA CHECK 0; SODIUM 136 MEQ/L (136-147); TOTAL BILIRUBIN 0.5 MG/DL (0.0-1.0); TOTAL CHOLESTEROL 101 mg/dL (Desirable<200); TRIGLYCERIDES 161 MG/DL (Normal: <150); UREA NITROGEN (BUN) 66 mg/dL (9-23)
[2017-02-26 06:01] LABS: ALKALINE PHOSPHATASE 174 IU/L (3-129)
[2017-02-26 07:40] LABS: Estimated Average Glucose 157 mg/dL (70-123); HEMOGLOBIN A1c (GLYCOHEMOGLOB) 7.1 % HGB (Below 5.7)
[2017-02-26 11:52] LABS: POINT-OF-CARE METER ID UU14208751
[2017-02-26 17:23] LABS: POINT-OF-CARE METER ID UU13113803
[2017-02-26 22:49] LABS: POINT-OF-CARE METER ID UU14208751
[2017-02-27] VITALS (19 sets, daily range): BP systolic 111–160; BP diastolic 58–90
[2017-02-27 04:45] LABS: EOSINOPHIL (%) 0.4 % (0-5); HEMATOCRIT 28.8 % (36.0-46.0); IMMATURE GRANULOCYTE (%) 0.8 % (0.0-0.7); IMMATURE GRANULOCYTE COUNT 0.1 K/uL; INSTRUMENT ABS NEUTROPHIL CT 4.6 K/uL; LYMPHOCYTE COUNT 1.6 K/uL (1.0-2.8); MCH 27.9 PG (29.0-34.0); MCHC 30.9 G/DL (30.0-36.0); MCV 90.3 FL (83-99); MEAN PLAT.VOLUME 9.5 uM^3 (9.5-12.4); MONOCYTE COUNT 1.3 K/uL (0-0.8); NEUTROPHIL (%) 60.5 % (45-76); NEUTROPHIL COUNT 4.6 K/uL (1.8-6.4); PLATELET COUNT 219 K/uL (156-360); RBC DIS.WIDTH-CV 16.7 % (11.8-14.6); RBC DIS.WIDTH-SD 55.1 % (39-53); RED BLOOD COUNT 3.19 M/uL (3.80-5.20); WHITE BLOOD COUNT 7.6 K/uL (4.1-10.2)
[2017-02-27 04:58] LABS: CHLORIDE 97 mEq/L (99-109); POTASSIUM 4.4 mEq/L (3.7-5.4); SODIUM 135 mEq/L (136-147)
[2017-02-27 05:00] LABS: GLUCOSE 201 mg/dL (70-99)
[2017-02-27 05:02] LABS: ANION GAP 9 MEQ/L (2-14)
[2017-02-27 05:04] LABS: GFR ESTIMATE (CALCULATED) 14 mL/min/
[2017-02-27 05:16] LABS: UREA NITROGEN (BUN) 31 mg/dL (9-23)
[2017-02-27 11:30] LABS: POINT-OF-CARE METER ID UU14314082
[2017-02-27 17:48] LABS: POINT-OF-CARE METER ID UU14174217
[2017-02-27 21:55] LABS: POINT-OF-CARE METER ID UU14314082; POINT-OF-CARE USER ID PHATLC
[2017-02-28] VITALS (8 sets, daily range): BP systolic 137–167; BP diastolic 66–106
[2017-02-28 05:20] LABS: HEMATOCRIT 30.7 % (36.0-46.0); MCH 28.3 PG (29.0-34.0); MCHC 30.6 G/DL (30.0-36.0); MCV 92.5 FL (83-99); PLATELET COUNT 284 K/uL (156-360); RBC DIS.WIDTH-CV 17.2 % (11.8-14.6); RBC DIS.WIDTH-SD 57.3 % (39-53); RED BLOOD COUNT 3.32 M/uL (3.80-5.20); WHITE BLOOD COUNT 9.9 K/uL (4.1-10.2)
[2017-02-28 05:46] LABS: ANION GAP 14 MEQ/L (2-14); CHLORIDE 90 MEQ/L (99-109); GFR ESTIMATE (CALCULATED) 11 mL/min/; GLUCOSE 201 mg/dL (70-99); POTASSIUM 4.8 MEQ/L (3.7-5.4); SAMPLE HEMOLYSIS CHECK 0; SAMPLE ICTERIC CHECK 0; SAMPLE LIPEMIA CHECK 0; SODIUM 131 MEQ/L (136-147); UREA NITROGEN (BUN) 43 mg/dL (9-23)
[2017-02-28 07:35] LABS: POINT-OF-CARE METER ID UU14162636
[2017-02-28] MEDS ORDERED: ASPIRIN81 M2 PO (11:00)
[2017-02-28] MEDS ORDERED: ATORVASTATIN CA40 MG PO (11:05)
== END 2017-02-28 14:45 | disposition home or self-care (01) | DRG 64 ==
LOC: EME 13:32 → EDOF 16:34 → 4WEST 16:34 → CANRESERV 16:36 → ENRESERV 16:36 → 4WEST 22:22 → ENRESERV 02-27 11:23 → CANRESERV 02-27 11:23 → ENRESERV 02-28 13:28 → 4WEST 02-28 14:45
PROVIDERS: Emergency Medicine; Hospitalist; Internal Medicine; Surgery
PROC: 5A1D70Z Performance of Urinary Filtration, Intermittent, Less than 6 Hours Per Day (ICD-10-PCS; principal; 2017-02-26)
DX: I63.9 Cerebral infarction, unspecified (principal); N18.6 End stage renal disease; D50.9 Iron deficiency anemia, unspecified; D63.1 Anemia in chronic kidney disease; N25.81 Secondary hyperparathyroidism of renal origin; E83.39 Other disorders of phosphorus metabolism; M19.90 Unspecified osteoarthritis, unspecified site; I65.23 Occlusion and stenosis of bilateral carotid arteries; F17.200 Nicotine dependence, unspecified, uncomplicated; I13.2 Hypertensive heart and chronic kidney disease with heart failure and with stage 5 chronic kidney disease, or end stage renal disease; F32.9 Major depressive disorder, single episode, unspecified; M06.9 Rheumatoid arthritis, unspecified; M79.7 Fibromyalgia; E11.21 Type 2 diabetes mellitus with diabetic nephropathy; E78.5 Hyperlipidemia, unspecified; E87.1 Hypo-osmolality and hyponatremia; R74.0 Nonspecific elevation of levels of transaminase and lactic acid dehydrogenase [LDH]; E11.22 Type 2 diabetes mellitus with diabetic chronic kidney disease; R09.89 Other specified symptoms and signs involving the circulatory and respiratory systems; E11.40 Type 2 diabetes mellitus with diabetic neuropathy, unspecified; I25.10 Atherosclerotic heart disease of native coronary artery without angina pectoris; I27.20 Pulmonary hypertension, unspecified; J90 Pleural effusion, not elsewhere classified; Z86.73 Personal history of transient ischemic attack (TIA), and cerebral infarction without residual deficits; Z79.4 Long term (current) use of insulin; Z99.2 Dependence on renal dialysis; Z90.710 Acquired absence of both cervix and uterus; J18.9 Pneumonia, unspecified organism
CPT/HCPCS: 70450; 70544; 70547; 70551; 71010; 80048; 80053; 80061; 80069; 82948; 83036; 84100; 85025; 85027; 85610; 85730; 87641; 92523 GN; 92610 GN; 93005; 94640; 94640 76; 94799; 99202; 99281; 99285; J1815

== ENCOUNTER 2017-03-31 21:30 | Inpatient (IN) | payer BC, OTHER ==
[~2017-03-31] VITALS: Ht 170.2 cm; Wt 85.5 kg
[~2017-03-31 21:30] MED LIST changes: +ASPIR 8181 M1 PO; +ASPIRIN81 M2 PO; +ATORVASTATIN CA40 MG PO; +AURYXIA PO
[2017-04-01 07:36] VITALS: BP 173/72
[2017-04-01 07:46] LABS: HEMATOCRIT 35.6 % (36.0-46.0); HEMOGLOBIN 10.7 G/DL (11.9-15.5); MCH 28.1 PG (29.0-34.0); MCHC 30.1 G/DL (30.0-36.0); MCV 93.4 FL (83-99); PLATELET COUNT 179 K/uL (156-360); RBC DIS.WIDTH-CV 19.3 % (11.8-14.6); RBC DIS.WIDTH-SD 65.3 % (39-53); RED BLOOD COUNT 3.81 M/uL (3.80-5.20)
[2017-04-01 08:13] LABS: CHLORIDE 96 MEQ/L (99-109); GFR ESTIMATE (CALCULATED) 17 mL/min/; GLUCOSE 69 mg/dL (70-99); POTASSIUM 3.2 MEQ/L (3.7-5.4); SODIUM 140 MEQ/L (136-147); UREA NITROGEN (BUN) 25 mg/dL (9-23)
[2017-04-01 21:20] VITALS: BP 166/72
[2017-04-01 23:30] VITALS: BP 173/78
[2017-04-02 03:00] VITALS: BP 178/79
[2017-04-02 04:59] VITALS: BP 143/64
[2017-04-02 07:42] VITALS: BP 134/70
[2017-04-02 11:08] LABS: BASOPHIL (%) 0.4 % (0-1); EOSINOPHIL (%) 0.4 % (0-5); HEMATOCRIT 29.3 % (36.0-46.0); HEMOGLOBIN 9.1 G/DL (11.9-15.5); IMMATURE GRANULOCYTE (%) 0.4 % (0.0-0.7); LYMPHOCYTE (%) 10.1 % (15-42); LYMPHOCYTE COUNT 0.8 K/uL (1.0-2.8); MCH 29.4 PG (29.0-34.0); MCHC 31.1 G/DL (30.0-36.0); MCV 94.8 FL (83-99); MONOCYTE (%) 8.2 % (3-12); MONOCYTE COUNT 0.7 K/uL (0-0.8); NEUTROPHIL (%) 80.5 % (45-76); NEUTROPHIL COUNT 6.4 K/uL (1.8-6.4); PLATELET COUNT 148 K/uL (156-360); RBC DIS.WIDTH-CV 18.6 % (11.8-14.6); RBC DIS.WIDTH-SD 65.1 % (39-53); RED BLOOD COUNT 3.09 M/uL (3.80-5.20)
[2017-04-02 11:28] LABS: ALBUMIN 3.3 G/DL (3.2-4.8); CHLORIDE 93 MEQ/L (99-109); CREATININE 4.3 MG/DL (0.6-1.3); GFR ESTIMATE (CALCULATED) 11 mL/min/; GLUCOSE 243 mg/dL (70-99); PHOSPHORUS 5.6 mg/dL (2.5-4.9); POTASSIUM 3.6 MEQ/L (3.7-5.4); SODIUM 132 MEQ/L (136-147); UREA NITROGEN (BUN) 34 mg/dL (9-23)
[2017-04-02 17:18] VITALS: BP 136/66
[2017-04-02 19:00] VITALS: BP 160/70
[2017-04-02 22:15] VITALS: BP 179/77
[2017-04-03 03:00] VITALS: BP 164/68
[2017-04-03 08:42] VITALS: BP 142/63
[2017-04-03 20:55] VITALS: BP 187/79
[2017-04-03 22:38] VITALS: BP 163/79
[2017-04-04 05:15] VITALS: BP 170/89
[2017-04-04 07:27] LABS: HEMATOCRIT 27.9 % (36.0-46.0); HEMOGLOBIN 8.4 G/DL (11.9-15.5); MCH 28.1 PG (29.0-34.0); MCHC 30.1 G/DL (30.0-36.0); MCV 93.3 FL (83-99); PLATELET COUNT 140 K/uL (156-360); RBC DIS.WIDTH-CV 17.7 % (11.8-14.6); RBC DIS.WIDTH-SD 60.9 % (39-53); RED BLOOD COUNT 2.99 M/uL (3.80-5.20); WHITE BLOOD COUNT 6.8 K/uL (4.1-10.2)
[2017-04-04 07:41] LABS: ALBUMIN 3.2 G/DL (3.2-4.8); CHLORIDE 96 MEQ/L (99-109); POTASSIUM 4.2 MEQ/L (3.7-5.4); SODIUM 133 MEQ/L (136-147)
[2017-04-04 07:47] LABS: CREATININE 4.5 MG/DL (0.6-1.3); GFR ESTIMATE (CALCULATED) 10 mL/min/; GLUCOSE 233 mg/dL (70-99); PHOSPHORUS 5.6 mg/dL (2.5-4.9); UREA NITROGEN (BUN) 37 mg/dL (9-23)
[2017-04-04 11:24] VITALS: BP 145/63
[2017-04-04 15:26] VITALS: BP 184/77
[2017-04-05 11:30] LABS: HEPATITIS B SURFACE ANTIGEN Nonreactive
[2017-04-05 11:58] LABS: HEPATITIS B SURFACE ANTIBODY REACTIVE
== END 2017-04-04 16:51 | disposition home or self-care (01) | DRG 37 ==
LOC: ENRESERV 21:30 → 2SOUTH 04-01 06:59 → SDC 04-01 11:06 → EDSTATUS 04-01 12:21 → 2SOUTH 04-01 12:29 → ENRESERV 04-01 18:01 → 4EAST 04-01 21:09 → SDC 04-03 10:11 → 4EAST 04-04 16:51
PROVIDERS: Internal Medicine; Surgery
DX: I65.22 Occlusion and stenosis of left carotid artery (principal); J95.821 Acute postprocedural respiratory failure; J90 Pleural effusion, not elsewhere classified; E87.70 Fluid overload, unspecified; I12.0 Hypertensive chronic kidney disease with stage 5 chronic kidney disease or end stage renal disease; N18.6 End stage renal disease; E83.39 Other disorders of phosphorus metabolism; N25.81 Secondary hyperparathyroidism of renal origin; E11.22 Type 2 diabetes mellitus with diabetic chronic kidney disease; E11.51 Type 2 diabetes mellitus with diabetic peripheral angiopathy without gangrene; E78.00 Pure hypercholesterolemia, unspecified; D63.1 Anemia in chronic kidney disease; J44.9 Chronic obstructive pulmonary disease, unspecified; M06.9 Rheumatoid arthritis, unspecified; M79.7 Fibromyalgia; I27.20 Pulmonary hypertension, unspecified; J98.11 Atelectasis; F32.9 Major depressive disorder, single episode, unspecified; R29.6 Repeated falls; F17.210 Nicotine dependence, cigarettes, uncomplicated; Z79.4 Long term (current) use of insulin; Z86.73 Personal history of transient ischemic attack (TIA), and cerebral infarction without residual deficits; Z99.2 Dependence on renal dialysis; Z79.82 Long term (current) use of aspirin
CPT/HCPCS: 71046; 80048; 80069; 82948; 85025; 85027; 86706; 87340; 87641; 93005; 94640; 94640 76; 94799; 99202; C1768; J0690; J1170; J1644; J1815; J2405; J2720; J2795; J3010

== ENCOUNTER 2017-08-07 23:20 | Emergency (ER) | payer BC, OTHER ==
[~2017-08-07] VITALS: Ht 170.2 cm; Wt 83.4 kg
[2017-08-08] MEDS ORDERED: AUGMENTIN875 MG PO (00:33)
[2017-08-08 00:46] VITALS: BP 186/81
== END 2017-08-08 01:08 | disposition home or self-care (01) ==
LOC: EME → EDBD 23:20 → EME 23:20
PROC: 2Y41X5Z Packing of Nasal Region using Packing Material (ICD-10-PCS; principal; 2017-08-07)
DX: R04.0 Epistaxis (principal); J44.9 Chronic obstructive pulmonary disease, unspecified; Z99.81 Dependence on supplemental oxygen; Z88.5 Allergy status to narcotic agent; Z88.6 Allergy status to analgesic agent; Z91.040 Latex allergy status
CPT/HCPCS: 99281; 99284

== ENCOUNTER 2017-08-20 15:58 | Inpatient (IN) | payer BC, OTHER ==
[~2017-08-20] VITALS: Ht 167.6 cm; Wt 84.2 kg
[~2017-08-20 15:58] MED LIST changes: +AUGMENTIN875 MG PO; +FOLIC ACID0.4 MG PO; -FOLIC ACID1 MG PO
[2017-08-20 17:44] LABS: HEMATOCRIT 34.8 % (36.0-46.0); HEMOGLOBIN 11.7 G/DL (11.9-15.5); MCH 30.8 PG (29.0-34.0); MCHC 33.6 G/DL (30.0-36.0); MCV 91.6 FL (83-99); PLATELET COUNT 190 K/uL (156-360); RBC DIS.WIDTH-CV 15.1 % (11.8-14.6); RBC DIS.WIDTH-SD 50.8 % (39-53)
[2017-08-20 17:50] LABS: INTER. NORMALIZED RATIO 1.1
[2017-08-20 17:53] LABS: PTT 30.8 SEC (25-37)
[2017-08-20 17:54] LABS: CHLORIDE 94 mEq/L (99-109); POTASSIUM 3.8 mEq/L (3.7-5.4); SODIUM 137 mEq/L (136-147)
[2017-08-20 17:55] LABS: GLUCOSE 187 mg/dL (70-99)
[2017-08-20 17:59] LABS: CREATININE 2.9 mg/dL (0.6-1.3); GFR ESTIMATE (CALCULATED) 17 mL/min/
[2017-08-20 18:00] LABS: UREA NITROGEN (BUN) 14 mg/dL (9-23)
[2017-08-20] MEDS ORDERED: FOSRENOL1000 MG PO ×2 (20:18)
[2017-08-21] VITALS (8 sets, daily range): BP systolic 80–192; BP diastolic 44–90
[2017-08-21 06:14] LABS: HEMATOCRIT 35.6 % (36.0-46.0); HEMOGLOBIN 11.2 G/DL (11.9-15.5); MCH 29.7 PG (29.0-34.0); MCHC 31.5 G/DL (30.0-36.0); MCV 94.4 FL (83-99); PLATELET COUNT 182 K/uL (156-360); RBC DIS.WIDTH-CV 15.4 % (11.8-14.6); RBC DIS.WIDTH-SD 53.6 % (39-53); RED BLOOD COUNT 3.77 M/uL (3.80-5.20)
[2017-08-21 06:40] LABS: ALBUMIN 3.3 G/DL (3.2-4.8); ALKALINE PHOSPHATASE 100 IU/L (3-129); ALT (GPT) 11 IU/L (3-49); AST (GOT) 14 IU/L (2-34); CHLORIDE 94 MEQ/L (99-109); GFR ESTIMATE (CALCULATED) 14 mL/min/; GLUCOSE 159 mg/dL (70-99); POTASSIUM 3.9 MEQ/L (3.7-5.4); SODIUM 135 MEQ/L (136-147); TOTAL BILIRUBIN 0.7 MG/DL (0.0-1.0); TOTAL PROTEIN 6.2 G/DL (6.4-8.3); UREA NITROGEN (BUN) 18 mg/dL (9-23)
[2017-08-21 06:42] LABS: CREATININE 3.4 MG/DL (0.6-1.3)
[2017-08-22] VITALS: BP 122/77
[2017-08-22 04:00] VITALS: BP 98/53
[2017-08-22 07:29] VITALS: BP 115/56
[2017-08-22 07:30] LABS: ALBUMIN 2.9 G/DL (3.2-4.8); ALKALINE PHOSPHATASE 80 IU/L (3-129); ALT (GPT) 7 IU/L (3-49); AST (GOT) 14 IU/L (2-34); CHLORIDE 97 MEQ/L (99-109); POTASSIUM 4.5 MEQ/L (3.7-5.4); SODIUM 132 MEQ/L (136-147); TOTAL PROTEIN 5.5 G/DL (6.4-8.3)
[2017-08-22 07:31] LABS: CREATININE 4.5 MG/DL (0.6-1.3); GFR ESTIMATE (CALCULATED) 10 mL/min/; GLUCOSE 276 mg/dL (70-99); TOTAL BILIRUBIN 0.5 MG/DL (0.0-1.0); UREA NITROGEN (BUN) 30 mg/dL (9-23)
[2017-08-22 07:48] LABS: BASOPHIL (%) 0.4 % (0-1); EOSINOPHIL (%) 0.8 % (0-5); EOSINOPHIL COUNT 0.1 K/uL (0-0.3); HEMATOCRIT 29.3 % (36.0-46.0); IMMATURE GRANULOCYTE (%) 0.3 % (0.0-0.7); LYMPHOCYTE (%) 8.5 % (15-42); LYMPHOCYTE COUNT 0.8 K/uL (1.0-2.8); MCH 29.6 PG (29.0-34.0); MCHC 30.7 G/DL (30.0-36.0); MCV 96.4 FL (83-99); MONOCYTE (%) 6.7 % (3-12); MONOCYTE COUNT 0.6 K/uL (0-0.8); NEUTROPHIL (%) 83.3 % (45-76); NEUTROPHIL COUNT 7.9 K/uL (1.8-6.4); PLATELET COUNT 148 K/uL (156-360); RBC DIS.WIDTH-CV 15.3 % (11.8-14.6); RBC DIS.WIDTH-SD 54.3 % (39-53); RED BLOOD COUNT 3.04 M/uL (3.80-5.20); WHITE BLOOD COUNT 9.5 K/uL (4.1-10.2)
[2017-08-22 08:50] LABS: IRON 16 MCG/DL (35-150); TRANSFERRIN (TIBC) 118.2 mg/dL (215-380); TRANSFERRIN SATUR. 14 % (20-55)
[2017-08-22 10:51] LABS: DEVICE NC; O2 FLOW 4 L/MIN; PCO2 44 mm Hg (35-45); PO2 63 mm Hg (80-100); TOTAL RESP RATE 16 resp/min; pH 7.45 (7.35-7.45)
[2017-08-22 10:52] LABS: BASE EXCESS 5.9 mEq/L (-3 to +3); BICARBONATE 30.6 mEq/L (22-26); CARBOXY HGB 2.3 % (0-5); METHEMOGLOBIN 0.9 % (0-1.5)
[2017-08-22 16:54] VITALS: BP 148/67
[2017-08-22 19:36] VITALS: BP 145/67
[2017-08-22 23:28] VITALS: BP 145/64
[2017-08-23 04:02] VITALS: BP 109/57
[2017-08-23 06:36] LABS: HEMATOCRIT 25.2 % (36.0-46.0); HEMOGLOBIN 7.9 G/DL (11.9-15.5); MCV 95.1 FL (83-99)
[2017-08-23 07:49] VITALS: BP 96/54
[2017-08-23 12:09] VITALS: BP 100/53
[2017-08-23 16:09] VITALS: BP 104/53
[2017-08-23 19:37] VITALS: BP 92/51
[2017-08-23 23:16] LABS: HEMATOCRIT 21.5 % (36.0-46.0); MCV 93.9 FL (83-99)
[2017-08-23 23:41] VITALS: BP 98/57
[2017-08-24] VITALS (10 sets, daily range): BP systolic 105–153; BP diastolic 50–72
[2017-08-24 06:20] LABS: HEMATOCRIT 21.4 % (36.0-46.0); MCH 30.1 PG (29.0-34.0); MCHC 31.8 G/DL (30.0-36.0); MCV 94.7 FL (83-99); PLATELET COUNT 134 K/uL (156-360); RBC DIS.WIDTH-SD 51.7 % (39-53); WHITE BLOOD COUNT 9.4 K/uL (4.1-10.2)
[2017-08-24 06:24] LABS: HEMOGLOBIN 6.8 G/DL (11.9-15.5); RED BLOOD COUNT 2.26 M/uL (3.80-5.20)
[2017-08-24 06:44] LABS: CHLORIDE 95 MEQ/L (99-109); GFR ESTIMATE (CALCULATED) 9 mL/min/; GLUCOSE 95 mg/dL (70-99); POTASSIUM 4.1 MEQ/L (3.7-5.4); SODIUM 133 MEQ/L (136-147); UREA NITROGEN (BUN) 40 mg/dL (9-23)
[2017-08-25 00:02] VITALS: BP 161/74
[2017-08-25 03:54] VITALS: BP 150/70
[2017-08-25 09:05] LABS: BASOPHIL (%) 0.4 % (0-1); EOSINOPHIL (%) 0.8 % (0-5); EOSINOPHIL COUNT 0.1 K/uL (0-0.3); HEMATOCRIT 23.7 % (36.0-46.0); HEMOGLOBIN 7.8 G/DL (11.9-15.5); IMMATURE GRANULOCYTE (%) 0.4 % (0.0-0.7); LYMPHOCYTE (%) 8.7 % (15-42); LYMPHOCYTE COUNT 0.8 K/uL (1.0-2.8); MCHC 32.9 G/DL (30.0-36.0); MCV 91.2 FL (83-99); MONOCYTE (%) 8.4 % (3-12); MONOCYTE COUNT 0.8 K/uL (0-0.8); NEUTROPHIL (%) 81.3 % (45-76); NEUTROPHIL COUNT 7.3 K/uL (1.8-6.4); PLATELET COUNT 142 K/uL (156-360); RBC DIS.WIDTH-CV 15.5 % (11.8-14.6); RBC DIS.WIDTH-SD 51.6 % (39-53)
[2017-08-25 09:14] LABS: CHLORIDE 94 MEQ/L (99-109); POTASSIUM 4.3 MEQ/L (3.7-5.4); SODIUM 129 MEQ/L (136-147)
[2017-08-25 09:23] LABS: CREATININE 5.3 MG/DL (0.6-1.3); GFR ESTIMATE (CALCULATED) 9 mL/min/; UREA NITROGEN (BUN) 50 mg/dL (9-23)
[2017-08-25 09:25] LABS: GLUCOSE 178 mg/dL (70-99)
[2017-08-25 13:05] VITALS: BP 126/56
[2017-08-25 16:10] VITALS: BP 131/63
[2017-08-25 20:00] VITALS: BP 125/57
[2017-08-25 23:43] VITALS: BP 144/66
[2017-08-26] VITALS (9 sets, daily range): BP systolic 94–162; BP diastolic 56–95
[2017-08-27] VITALS: BP 155/64
[2017-08-27 05:40] LABS: BASOPHIL (%) 0.6 % (0-1); EOSINOPHIL (%) 1.4 % (0-5); EOSINOPHIL COUNT 0.1 K/uL (0-0.3); HEMATOCRIT 22.9 % (36.0-46.0); HEMOGLOBIN 7.2 G/DL (11.9-15.5); IMMATURE GRANULOCYTE (%) 0.6 % (0.0-0.7); LYMPHOCYTE (%) 14.1 % (15-42); MCH 29.6 PG (29.0-34.0); MCHC 31.4 G/DL (30.0-36.0); MCV 94.2 FL (83-99); MONOCYTE (%) 12.7 % (3-12); MONOCYTE COUNT 0.9 K/uL (0-0.8); NEUTROPHIL (%) 70.6 % (45-76); NEUTROPHIL COUNT 5.1 K/uL (1.8-6.4); PLATELET COUNT 165 K/uL (156-360); RBC DIS.WIDTH-CV 15.1 % (11.8-14.6); RBC DIS.WIDTH-SD 52.5 % (39-53); RED BLOOD COUNT 2.43 M/uL (3.80-5.20); WHITE BLOOD COUNT 7.2 K/uL (4.1-10.2)
[2017-08-27 06:25] LABS: ALBUMIN 2.4 G/DL (3.2-4.8); CHLORIDE 96 MEQ/L (99-109); CREATININE 4.4 MG/DL (0.6-1.3); GFR ESTIMATE (CALCULATED) 11 mL/min/; GLUCOSE 218 mg/dL (70-99); POTASSIUM 3.8 MEQ/L (3.7-5.4); SODIUM 134 MEQ/L (136-147); UREA NITROGEN (BUN) 42 mg/dL (9-23)
[2017-08-27 08:00] VITALS: BP 166/78
[2017-08-27 14:00] VITALS: BP 142/78
[2017-08-27] MEDS ORDERED: FLOVENT 44120 INHALA IH (14:38)
[2017-08-27] MEDS ORDERED: DILAUDID2 MG PO (14:38)
[2017-08-27] MEDS ORDERED: CALAN SR,COVER120 MG PO (14:38)
[2017-08-27] MEDS ORDERED: SPIRIVA18 MCG IH (14:39)
== END 2017-08-27 15:57 | disposition home health service (06) | DRG 469 ==
LOC: EME 15:58 → 3EAST 21:55 → 4WEST 21:55 → EDOF 21:55 → ENRESERV 22:03 → 3EAST 23:59 → ENRESERV 08-26 09:24 → 3EAST 08-26 09:28 → ENRESERV 08-26 09:35 → 4WEST 08-26 11:08 → ENRESERV 08-26 16:42 → 4WEST 08-26 17:15 → ENRESERV 08-26 22:22 → CANRESERV 08-26 22:43 → ENRESERV 08-26 22:43 → CANRESERV 08-27 09:54 → 4WEST 08-27 15:57
PROVIDERS: Emergency Medicine; Hospitalist; Internal Medicine; Internal Medicine Nephrology; Orthopaedic Surgery Sports Medicine; Physician Assistant; Radiology Diagnostic Radiology
DX: S72.011A Unspecified intracapsular fracture of right femur, initial encounter for closed fracture (principal); W01.0XXA Fall on same level from slipping, tripping and stumbling without subsequent striking against object, initial encounter; J44.1 Chronic obstructive pulmonary disease with (acute) exacerbation; J96.21 Acute and chronic respiratory failure with hypoxia; I65.23 Occlusion and stenosis of bilateral carotid arteries; Z99.81 Dependence on supplemental oxygen; D62 Acute posthemorrhagic anemia; D63.1 Anemia in chronic kidney disease; I13.2 Hypertensive heart and chronic kidney disease with heart failure and with stage 5 chronic kidney disease, or end stage renal disease; E11.22 Type 2 diabetes mellitus with diabetic chronic kidney disease; I50.9 Heart failure, unspecified; N18.6 End stage renal disease; Z99.2 Dependence on renal dialysis; I08.1 Rheumatic disorders of both mitral and tricuspid valves; I27.20 Pulmonary hypertension, unspecified; J98.11 Atelectasis; E11.51 Type 2 diabetes mellitus with diabetic peripheral angiopathy without gangrene; M79.7 Fibromyalgia; G43.909 Migraine, unspecified, not intractable, without status migrainosus; F32.9 Major depressive disorder, single episode, unspecified; E78.5 Hyperlipidemia, unspecified; F41.9 Anxiety disorder, unspecified; F17.210 Nicotine dependence, cigarettes, uncomplicated; Z86.73 Personal history of transient ischemic attack (TIA), and cerebral infarction without residual deficits; I44.4 Left anterior fascicular block; D50.9 Iron deficiency anemia, unspecified
CPT/HCPCS: 36600; 70450; 71045; 72170; 73080; 73501; 73552; 80048; 80053; 80069; 82272; 82803; 82948; 83540; 84466; 85014; 85018; 85025; 85027; 85610; 85730; 86850; 86900; 86901; 86920; 87641; 88305; 88311; 93005; 94640; 94640 76; 94667; 94760; 94799; 97530 GO; 99202; 99281; 99285; C1768; J0360; J0690; J0881; J1170; J1644; J1650; J1756; J1815; J2405; J2720; J2795; J3010; J7030; J7040; J7050; P9016